=== PATIENT | female | born 1985 | race Caucasian/White ===

== ENCOUNTER 2019-09-13 09:22 | Outpatient (CLI) | payer BC, SELFPAY ==
--- NOTE | 2019-09-13 09:28 | US_ITS ---
WS: [id number] EARLY OBSTETRICAL ULTRASOUND (<14 WEEKS). HISTORY: SUPERVISION,NORMAL COMPARISON: None available. Single intrauterine gestational sac is identified. Cardiac activity at 176 BPM. [place]-rump length erica sures 4.0 cm which corresponds to a gestation of 10w6d. Normal-appearing yolk sac and amnion demonstr ated. No subchorionic hemorrhage. No free fluid. RIGHT ovary measures 3.3 x 2.6 x 2.9 cm and contains a corpus luteum of with a maximum diam eter of 1.3 cm. LEFT ovary measures 3.0 x 2.2 x 3.0 cm. US/US OB <= 14 weeks fetus [id number] IMPRESSION: 1. Single intrauterine gestation of 10 weeks 6 days with an EDC of 04/04/2020. 2. Normal cardiac activity.
== END 2019-09-13 09:23 | disposition home or self-care (01) ==
LOC: RAD 09:27
PROVIDERS: Family Provider Family Medicine; PCP Family Medicine; Visit Provider Family Medicine
DX: Z34.91 Encounter for supervision of normal pregnancy, unspecified, first trimester (principal)
CPT/HCPCS: 76801

== ENCOUNTER 2019-11-22 14:42 | Outpatient (CLI) | payer BC, SELFPAY ==
--- NOTE | 2019-11-22 15:00 | US_ITS ---
WS: [id number] OBSTETRICAL ULTRASOUND COMPLETE HISTORY: ANATOMY COMPARISON: 09/13/2019 Single intrauterine gestation in breech presentation. Cervix is Closed and normal length. Cervical length is 3.7 cm. Normal amount of amniotic fluid surrounds the fetus. Placenta: Anterior, no previa. Placenta grade 1 Heart: 153 BPM. Four chambers are identified. Anatomy: Intracranial structures and spine are normal. kidneys, stomach and urinary bladd er are unremarkable. Abdominal wall, three-vessel cord and cord insertion site are normal. 4 extremities are present. profile: Unremarkable. Gender: Female. measurements: BPD = 4.6 cm = 19w6d HC = 17.5 cm = 20w0d AC = 14.7 cm = 20w0d FL = 3.2 cm = 19w6d EFW: 322 g., AGA by ultrasound: 20w0d HITESH by ultrasound: 04/10/2020 US/US OB >= 14 weeks fetus [id number] IMPRESSION: 1. Single intrauterine gestation of 20w0d with an EDC of 04/10/2020. Appropria te growth since the first trimester. 2. Unremarkable screening survey of anatomy.
== END 2019-11-22 14:43 | disposition home or self-care (01) ==
PROVIDERS: Family Provider Family Medicine; PCP Family Medicine; Visit Provider Family Medicine
DX: Z36.89 Encounter for other specified antenatal screening (principal); Z3A.20 20 weeks gestation of pregnancy
CPT/HCPCS: 76805

== ENCOUNTER 2020-04-08 07:44 | Inpatient (IN) | payer BC, SELFPAY ==
[2020-04-08] VITALS (97 sets, daily range): BP systolic 0–161; BP diastolic 0–98; PULSE 75–116; RESP 15–17; TEMP 36.7–36.9; O2SAT 97–100; BMI 26.6
[2020-04-08 08:34] LABS: Basophils % 0.1 %; Eosinophils # 0.3 10^3/uL (0.0-0.8); Eosinophils % 2.2 %; Hematocrit 35.5 % (37.0-47.0); Hemoglobin 12.1 g/dL (11.5-15.3); Lymphocytes % 13.9 %; Mean Corpuscular HGB Conc 34.1 g/dL (30.0-36.0); Mean Corpuscular Hemoglobin 31.1 pg (28.0-34.0); Mean Corpuscular Volume 91.3 fL (81-99); Mean Platelet Volume 11.4 fL (7.4-10.4); Monocytes # 0.6 10^3/uL (0.2-0.9); Monocytes % 4.5 %; Neutrophils # 11.26 10^3/uL (1.8-7.7); Neutrophils % 78.3 %; Nucleated Red Blood Cells % 0 %; Platelet Count 184 10^3/cmm (130-400); Red Blood Count 3.89 10^6/uL (4.1-5.3); Red Cell Distribution Width 12.9 % (12.1-15.1); White Blood Count 14.4 10^3/uL (4.0-10.0)
[2020-04-08] MEDS: lactated ringers 1,000 ML 999 ML IV ×3 (08:46→21:01)
--- NOTE | 2020-04-08 09:09 | P.ANESUD_ITS ---
Pre-Anesthetic Update Pre-Anesthetic Assessment: Date of Surgery/Procedure: 04/08/20 Preop Beatrice gnosis: IUP Proposed Procedure: epidural Any changes to Pre-Anesthetic Assessment?: No Labs Last 48hrs: Laboratory Results - last 48 hr 04/08/20 08:20 WBC 14.4 H RBC 3.89 L Hgb 12.1 Hct 35.5 L MCV 91.3 MCH 31.1 MCHC 34.1 RDW 12.9 Plt Count 184 MPV 11.4 H Neut % (Auto) 78.3 Lymph % (Auto) 13.9 [place] % (Auto) 4.5 Eos % (Auto) 2.2 Baso % (Auto) 0.1 Neut # (Auto) 11.26 H Lymph # (Auto) 2.0 [place] # (Auto) 0.6 Eos # (Auto) 0.3 Baso # (Auto) 0.0 Nucleated RBC % (a uto) 0 Nucleated RBCs # 0.0 Vitals: Pulse Rate 83 04/08/20 09:00 Blood Pressure 140/95 04/08/20 09:00 Blood Pressure [place] n 114 04/08/20 09:00 Exam: Pre-Anes Outpt Exam: alert, oriented x 3, clear to auscultation bilaterally and regular rate & rhythm Cardiac Studies: No Data to Display
--- NOTE | 2020-04-08 09:29 | P.HP_ITS ---
Providers/Chief Complaint Primary Care Provider: Yuan Draper MD Chief Complaint: Abdominal pain History of Present Illness Anthony Bruner is a 35 year old G2, P1 at 39.5 weeks gestation by LMP consistent with 10-week ultrasound. Her is complicated by history of LEEP, history of chlamydia, history of child with sternal defect, chronic hypertension that is currently diet controlled, anxiety, anemia. The patient states that over the last few days she has been having increasing contractions. She noted that these increased in strength around midnight on 04/08/2020. The contractions continued to build and she presented on the morning of 04/08/2020 around 8:00 AM and was noted to be 5 cm dilated. The patient denies any fevers, cough, chest pain, shortness of breath, nausea, vomiting, constipation, diarrhea, leakage of fluid. Medications/Allergies Home Medications Medication Instructions Recorded Confirmed Last Taken Type [id number] fumarate-FA tab PO 04/08/20 Unknown History [] ferrous sulfate [iron] 325 mg PO DAILY 04/08/20 04/08/20 04/07/20 13:00 History Allergies Allergy/AdvReac Type Severity Reaction Status Date / Time No Known Allergies Allergy Verified 04/08/20 09:31 PFSH Acute PFSH: Surgical History (Updated 04/08/20 @ 09:33 by Cortez Roberts MD) H/O LEEP Social History (Updated 04/08/20 @ 09:34 by Cortez Roberts MD) Smoking and tobacco status: never smoked Alcohol intake: never Substance/Drug Use: never Current occupational status: employed Vitals/I&O/Wt Last Vital Signs Pulse 86 04/08/20 09:15 BP 143/93 04/08/20 09:15 Physical Exam Narrative: EXAM NARRATIVE: General: Alert and oriented x3 Eyes: Pupils equal round and reactive to light and accommodation Mouth: Mucous membranes moist, pharynx non-erythematous Cardiac: Regular rate and rhythm without murmurs Lungs: Clear to auscultation bilaterally without wheezes, crackles or rhonchi Abdomen: Soft, non-tender, fundus consistent with gestational age Extremities: Trace edema in the bilateral lower extremities Data : 04/08/20 08:20 A&P Assessment and plan (1) Intrauterine : Status: Acute Additional A&P Information The patient is currently chinyere every 3 to 6 minutes. heart tones are in the mid 130s with moderate variability and good accelerations consistent with a category 1 tracing. The patient is currently 6 cm dilated. She has began to have some vaginal bleeding. It is mild to moderate in nature. The patient would like to have an epidural. We will plan to get the epidural and continue to monitor her bleeding. We will likely add IV Pitocin for augmentation of labor and consider AROM if the bleeding does not slow down. This could be secondary to her LEEP procedure with scar tissue that is bleeding. The patient's placenta was not noted to be low-lying at her 20-week ultrasound. Currently there are no signs of distress to the infant. Besides this, the GBS is negative and the patient is doing well. Proceed with routine intrapartum management. Attestations Medical Necessity Statement*: The patient will be here for greater than 2 midnights due to routine intrapartum and management of labor and delivery. Coding Level of Care Code Acute Real Estate Representative for Roddy Cox Diagnoses Intrauterine Z34.90
--- NOTE | 2020-04-08 10:14 | ANES.PROC ---
Anesthesia Procedures Procedure/Date: 04/08/20 epidural Procedure Narrative: epidural complete, bolus given, epidural pump initiated with PROPERTY STAFF ACCOUNTANT education given, vitals taken during procedure using OBIX system and satisfactory throughout, patient admits to decrease pain, report of procedure to OB RN Epidural: Time Out Performed: Yes Consents Signed: Procedure Consent Consent: requested by attending/covering physician, from patient, risks and benefits reviewed and patient agrees to proceed Lumbar Level: L3-L4 Epidural position: sitting Epidural procedure: sterile prep of area, 1% lidocaine to numb the area (3 mL), 18 g needle, negative for paresthesia passed, neg for paresthesia, test dose given, 1.5% xylocaine 1:200k epi (5 mL), 0.2% Ropivacaine bolus ml (5 mL), placed PCEA, no systemic response, sterile dressing applied, L.U.D. no apparent complications and 0.2% Ropiavacaine @ mls/hr (13 mL/hr)
[2020-04-08] MEDS: dextrose 5%-lactated ringers 1,000 ML 125 ML IV ×2 (10:42→17:58)
[2020-04-08] MEDS: oxytocin 30 UNIT/500 ML BAG 4 UNIT IV (11:04)
--- NOTE | 2020-04-08 14:58 | PM.DELIVERY ---
Delivery Note: Date of delivery: April 08, 2020 Pre-delivery diagnoses: 1. Intrauterine at 39.5 weeks gestation 2. Anxiety 3. History of LEEP Post-delivery diagnoses: 1. Intrauterine status post spontaneous vaginal delivery at 39.5 weeks gestation 2. Anxiety 3. History of LEEP 4. Delivery of healthy infant female weighing 7 pounds 9 ounces with Apgars of 9 and 9 Procedure: Spontaneous vaginal delivery Op report anesthesia: Epidural Estimated blood loss (mL): 100 Pre-Delivery Course: The patient presented to labor and delivery triage secondary to contractions that worsened around midnight on 04/08/2020. The patient presented to labor and delivery and was 5 cm dilated at 8 AM on 04/08/2020. The patient continued to make change on her own and received a laboring epidural. IV Pitocin was given to augment labor. The patient made steady change and was complete by 1355 on 04/08/2020. Delivery: The patient began pushing at 1403 on 04/08/2020. The patient pushed well and the delivered in the OA position at 1432 on 04/08/2020. The right shoulder was the anterior shoulder and it delivered with ease. Rest of the infant delivered with steady pressure. Terminal meconium was noted. The mouth and nose were bulb suctioned by myself. The was crying immediately after delivery. The infant was placed on the mother's chest where the nurses were waiting to care for her. The cord was clamped by myself after approximately 1 minute and cut by the infant's grandmother. Cord blood was obtained. The cord was then drained of blood and traction was placed on the umbilical cord. The placenta delivered without complication at 1436 on 04/08/2020. The placenta was noted to be intact with a central umbilical cord insertion site. IV Pitocin was bolused. The uterus was noted to be firm, midline and low. The patient had very little bleeding. The cervix was inspected and there were no lacerations noted. The vaginal wall was inspected and 2 small abrasions in the periurethral region were noted. No suturing was needed. Currently both the mother and infant are doing very well. A&P Assessment and plan (1) Intrauterine : Status: Acute Coding Level of Care Code Acute Foreign Car Mechanic for [facility] Diagnoses Intrauterine Z34.90
[2020-04-08] MEDS: oxytocin 30 UNIT/500 ML BAG 600 UNIT IV (17:08)
[2020-04-08] MEDS: miSOPROStol 200 mcg Tablet 800 MCG PR (17:12)
--- NOTE | 2020-04-08 17:28 | PC.NURSE ---
BLEEDING FUNDUS WAS FIRM AT 1630 AND AT 1705 FUNDUS WAS FIRM AND BLADDER FELT DISTENDED AND OFF TO HER RIGHT SIDE. PT FELT DIZZY AND UNABLE TO VOID SO STRAIGHT CATH DONE AT 1710 AND FUNDUS MASSAGED WELL AND LARGE AMOUNT OF CLOTS AND FLOW IT WAS WEIGHED AND 1140MLS TOTAL. Cedric GREER CALLED AND WELL ANOTHER BAG OF PITOCIN HUNG WHILE ROSALBA STONE TALKED WITH DR. GREER ORDERED RECEIVED TO PLACE 800MCG CYTOTEC. 1715 CYTOTEC 800MCG GIVEN PER RECTUM. PT STATES FEELING BETTER. FUNDUS FIRM AT UMBILICUS.
[2020-04-08] MEDS: docusate sodium 100 mg Capsule PO (17:58)
[2020-04-08 21:18] LABS: Basophils % 0.1 %; Eosinophils % 0.1 %; Hematocrit 26.6 % (37.0-47.0); Hemoglobin 8.9 g/dL (11.5-15.3); Lymphocytes # 1.2 10^3/uL (0.8-4.8); Lymphocytes % 7.3 %; Mean Corpuscular HGB Conc 33.5 g/dL (30.0-36.0); Mean Corpuscular Volume 92.7 fL (81-99); Mean Platelet Volume 11.3 fL (7.4-10.4); Monocytes # 0.7 10^3/uL (0.2-0.9); Monocytes % 4.5 %; Neutrophils % 87.3 %; Nucleated Red Blood Cells % 0 %; Platelet Count 170 10^3/cmm (130-400); Red Blood Count 2.87 10^6/uL (4.1-5.3); Red Cell Distribution Width 12.8 % (12.1-15.1); White Blood Count 16.6 10^3/uL (4.0-10.0)
[2020-04-08 21:24] LABS: INR 1.04 (0.8-1.2); Partial Thromboplastin Time 26.7 SECONDS (23.9-36.7)
[2020-04-08 21:26] LABS: Fibrinogen 378 mg/dL (174-498)
[2020-04-08] MEDS: benzocaine-menthol 78 gm Canister 1 SPRAY TOPICAL (21:49)
[2020-04-08 21:53] LABS: Alanine Aminotransferase 7 U/L (0-33); Albumin Level 2.9 g/dL (3.5-5.2); Alkaline Phosphatase 91 IU/L (35-105); Anion Gap 11.8 (5-19); Aspartate Amino Transferase 15 U/L (0-32); Blood Urea Nitrogen 8 mg/dL (6-20); Calcium 7.7 mg/dL (8.5-10.5); Carbon Dioxide 21 mmol/L (22-29); Chloride 106 mmol/L (98-107); Globulin 1.8 g/dL (1.3-4.6); Glomerular Filtration Rate 95.8 mL/min (90-130); Glucose 110 mg/dL (65-115); Osmolality Calculated 277 mOsm/kg (285-295); Potassium 3.8 mmol/L (3.5-5.1); Sodium 135 mmol/L (136-145); Total Bilirubin 0.2 mg/dL (0.15-1.2); Total Protein 4.7 g/dL (6.6-8.7)
[2020-04-09 03:45] VITALS: BP 120/77; PULSE 70; RESP 16; TEMP 36.7; O2SAT 97
[2020-04-09 06:35] LABS: Hematocrit 23.1 % (37.0-47.0); Hemoglobin 7.8 g/dL (11.5-15.3); Mean Corpuscular HGB Conc 33.8 g/dL (30.0-36.0); Mean Corpuscular Hemoglobin 31.1 pg (28.0-34.0); Platelet Count 140 10^3/cmm (130-400); Red Blood Count 2.51 10^6/uL (4.1-5.3); White Blood Count 13.9 10^3/uL (4.0-10.0)
--- NOTE | 2020-04-09 08:13 | ANE.PACU2 ---
Inpatient post-anesthesia follow up: Airway intact: Yes Vital signs: Temperature 98.1 F Pulse Rate 70 Respiratory Rate 16 Blood Pressure 120/77 Pulse Oximetry 97 Oxygen Delivery Me thod Room Air Oxygen Flow Rate Fraction of Inspir ed Oxygen Hydration adequate: Yes Nausea and vomiting: No Pain level: 3 Mental status: Baseline Additional Comments: no weakness/numbness of legs, no headache, no signs of infection at epidural site
[2020-04-09] MEDS: docusate sodium 100 mg Capsule PO (08:15)
[2020-04-09] MEDS: prenatal vitamin Capsule 1 CAP PO (08:15)
[2020-04-09 08:47] VITALS: BP 125/78; PULSE 82; RESP 18; TEMP 36.8
[2020-04-09 10:00] VITALS: BP 121/72; PULSE 78; RESP 16; TEMP 36.8; O2SAT 98
--- NOTE | 2020-04-09 14:19 | PM.DCS ---
Discharge Providers Date of Admission: 04/08/20 07:44 Date of Discharge: April 09, 2020 Attending Provider at Admission: Cortez Rboerts MD Attending Provider at Discharge: Cortez Roberts MD Primary Care Provider: Yuan Draper MD Diagnoses at Discharge Discharge Diagnosis (1) Intrauterine : Status: Acute Reason for Visit Reason for Visit: Abdominal pain Hospital Course Hospital Course: The patient presented to labor and delivery triage secondary to contractions that worsened around midnight on 04/08/2020. The patient presented to labor and delivery and was 5 cm dilated at 8 AM on 04/08/2020. The patient continued to make change on her own and received a laboring epidural. IV Pitocin was given to augment labor. The patient made steady change and was complete by 1355 on 04/08/2020. The patient began pushing at 1403 on 04/08/2020. The patient pushed well and the infant delivered in the OA position at 1432 on 04/08/2020. The right shoulder was the anterior shoulder and it delivered with ease. Rest of the infant delivered with steady pressure. Terminal meconium was noted. The mouth and nose were bulb suctioned by myself. The was crying immediately after delivery. The was placed on the mother's chest where the nurses were waiting to care for her. The cord was clamped by myself after approximately 1 minute and cut by the 's grandmother. Cord blood was obtained. The cord was then drained of blood and traction was placed on the umbilical cord. The placenta delivered without complication at 1436 on 04/08/2020. The placenta was noted to be intact with a central umbilical cord insertion site. IV Pitocin was bolused. The uterus was noted to be firm, midline and low. The patient had very little bleeding. The cervix was inspected and there were no lacerations noted. The vaginal wall was inspected and 2 small abrasions in the periurethral region were noted. No suturing was needed. the patient was doing well initially, however later in the evening was found to have a very large blood clot after her uterus was noted to be above her umbilicus and to the right by the nurse. She was found to have over thousand mL of urine in her bladder on straight cath as the patient was unable to void. The patient's bleeding slowed down well after this, however she did have some dizziness. This improved with a liter bolus of warmed fluids. The patient's hemoglobin was rechecked and had dropped from 12 on admission to 8.9 that evening prior to the bolus. By the morning of 04/09/2020, it had settled at 7.8. The patient currently feels well and no longer has any dizziness since the fluid bolus. She is ambulating, voiding, passing gas and tolerating food by mouth. The patient's bleeding is very little at this time. Her pain is well controlled. I had a lengthy discussion with the patient regarding the causes of the above as well as precautions and when to return for evaluation. I spoke with the patient regarding staying 1 more night versus going home this afternoon, and she would prefer to go home this evening as long as she is still doing well throughout the afternoon. We will see how she does over the next couple of hours and have her walk the halls to be sure that she is no longer having dizziness and can complete her ADLs at home sufficiently. If she does well with this, will plan for discharge home. The patient will follow-up with me on Friday. All questions were answered. Routine obstetrical discharge instructions were given. Physical Exam Narrative: EXAM NARRATIVE: General: Alert and oriented x3 Cardiac: Regular rate and rhythm without murmurs Lungs: Clear to auscultation bilaterally without wheezes, crackles or rhonchi Abdomen: Soft, mild tenderness over the uterus. Uterus is firm, midline and 4 cm below the umbilicus. Extremities: Trace edema in the bilateral lower extremities Urinary Catheter Management^: [place]: Cath Placed During This Visit: yes, but has since been removed by the nurse Reason for Continuing Indwelling Catheter: Other Urinary Catheter Date of Insertion: 04/08/20 Urinary Catheter Time of Insertion: 10:35 Date Urinary Catheter Removed: 04/08/20 Time Urinary Catheter Discontinued: 14:00 Discharge Data Data Completed and Pending: Labs from last 24 hours 04/09/20 04/08/20 04/08/20 05:55 21:00 21:00 WBC 13.9 H RBC 2.51 L Hgb 7.8 L Hct 23.1 L MCV 92.0 MCH 31.1 MCHC 33.8 RDW 13.0 Plt Count 140 MPV 11.0 H Neut % (Auto) Lymph % (Auto) [place] % (Auto) Eos % (Auto) Baso % (Auto) Neut # (Auto) Lymph # (Auto) [place] # (Auto) Eos # (Auto) Baso # (Auto) Nucleated RBC % (a uto) Nucleated RBCs # PT 13.90 INR 1.04 APTT 26.7 Fibrinogen 378 Fibrin Degrad Prod ucts Pos, 10-40 H D-Dimer 7.90 H Sodium 135 L Potassium 3.8 Chloride 106 Carbon Dioxide 21 L Anion Gap 11.8 BUN 8 Creatinine 0.7 GFR Calculation 95.8 Glucose 110 Calculated Osmolal ity 277 L Calcium 7.7 L Total Bilirubin 0.2 AST 15 ALT 7 Alkaline Phosphata se 91 Total Protein 4.7 L Albumin 2.9 L Globulin 1.8 04/08/20 21:00 WBC 16.6 H RBC 2.87 L Hgb 8.9 L Hct 26.6 L MCV 92.7 MCH 31.0 MCHC 33.5 RDW 12.8 Plt Count 170 MPV 11.3 H Neut % (Auto) 87.3 Lymph % (Auto) 7.3 [place] % (Auto) 4.5 Eos % (Auto) 0.1 Baso % (Auto) 0.1 Neut # (Auto) 14.50 H Lymph # (Auto) 1.2 [place] # (Auto) 0.7 Eos # (Auto) 0.0 Baso # (Auto) 0.0 Nucleated RBC % (a uto) 0 Nucleated RBCs # 0.0 PT INR APTT Fibrinogen Fibrin Degrad Prod ucts D-Dimer Sodium Potassium Chloride Carbon Dioxide Anion Gap BUN Creatinine GFR Calculation Glucose Calculated Osmolal ity Calcium Total Bilirubin AST ALT Alkaline Phosphata se Total Protein Albumin Globulin Vitals: Last Vital Signs Temp 98.3 F 04/09/20 10:00 Pulse 78 04/09/20 10:00 Resp 16 04/09/20 10:00 BP 121/72 04/09/20 10:00 Pulse Ox 98 04/09/20 10:00 Discharge Plan Discharge Patient Disposition: Home Condition: Stable Prescriptions: New ibuprofen 800 mg Tablet 800 mg PO TID Qty: 60 RF: 0 Continued 28-800 mg-mcg Tablet PO RF: 0 Changed iron 325 mg (65 mg iron) Tablet 325 mg PO BIDWMEAL Qty: 60 RF: 0 Discharge Orders: Discharge Order (Routine); Ordered 04/09/20 Ordered By: Cortez Roberts Discharge Diet: Regular Discharge Activity: Increase activity as tolerated and Limit activity as instructed Activity Restrictions/Additional Instructions: Nothing per vagina for 6 weeks. If you have any concerns for heavy bleeding or other complications, please return for further evaluation. Discharge Attestations Time Spent in Discharge Care*: greater than 30 min Quality Metrics Clinical Quality Measures During this hospital stay, did patient experience: None Coding Level of Care Code Acute Butadiene Convertor Operator for [facility] Diagnoses Intrauterine Z34.90
[2020-04-09 16:45] VITALS: BP 131/83; PULSE 89; RESP 18; TEMP 36.7; O2SAT 98
[2020-04-09 17:01] VITALS: BP 131/83; PULSE 89; RESP 18; TEMP 36.7; O2SAT 98
== END 2020-04-09 16:55 | disposition home or self-care (01) | DRG 806 ==
LOC: OPOB 07:50 → OBGYN 07:51 → OPOB 10:51 → OBGYN 10:51
PROVIDERS: Admitting Provider Family Medicine; PCP Family Medicine; Visit Provider Family Medicine
DX: O77.0 Labor and delivery complicated by meconium in amniotic fluid (principal); O10.92 Unspecified pre-existing hypertension complicating childbirth; Z37.0 Single live birth; Z3A.39 39 weeks gestation of pregnancy; O99.344 Other mental disorders complicating childbirth; F41.9 Anxiety disorder, unspecified
CPT/HCPCS: 12345; 36415; 51702; 59025; 59409; 80053; 85025; 85027; 85362; 85378; 85384; 85610; 85730; 99211; J2795

== ENCOUNTER → 2021-12-13 14:42 | Outpatient (BNVA) | payer BC, SELFPAY | PROVIDERS: PCP Family Medicine; Visit Provider Family Medicine | DX: Z01.419 Encounter for gynecological examination (general) (routine) without abnormal findings (principal) | CPT/HCPCS: 87624 ==

== ENCOUNTER 2023-01-27 17:08 | Emergency (ER) | payer BC, SELFPAY ==
[2023-01-27 17:35] VITALS: BP 159/100; PULSE 87; RESP 16; TEMP 36.8; O2SAT 98; BMI 24.9
--- NOTE | 2023-01-27 17:46 | ED_ITS ---
HPI - General: Chief complaint: OB/Uterine Contractions Stated complaint: vaginal bleeding, Time Seen by Provider: 01/27/23 17:19 Source: patient Mode of arrival: ambulatory Limitations: no limitations History of Present Illness: 37-year-old female who states she believes she is roughly 4 weeks . States she has had some vaginal bleeding and passed 1 blood clot today. She had some slight abdominal cramping she denies any vomiting or diarrhea she denies any fever she denies any heavy bleeding. Associated symptoms: Deny abdominal pain, headache(s), nausea or vomiting Review of Systems Const: Denies: fever(s) or chills ENMT: Denies: throat pain or dental pain Card: Denies: chest pain Resp: Denies: dyspnea GI: Denies: abdominal pain, nausea, vomiting or diarrhea : Reports: vaginal bleeding Musc: Denies: neck pain or back pain Skin/Breast: Denies: rash Neuro: Denies: headache(s) PFSH ED PFSH: Surgical History H/O LEEP Social History Smoking and tobacco status: never smoked Alcohol intake: never Substance/Drug Use: never Current occupational status: employed Physical Exam Const: COMMON NORMALS: no acute distress, patient oriented x3 and healthy appearing HENMT: COMMON NORMALS: normocephalic and atraumatic HEAD & SCALP: normocephalic and atraumatic Eye: COMMON NORMALS: conjunctivae normal CONJUNCTIVA: Yes conjunctivae normal Neck/C-Spine: COMMON NORMALS: supple Chest: COMMONS NORMALS: normal inspection of the chest Resp: COMMON NORMALS: normal respiratory effort Cardio: COMMON NORMALS: regular rate, regular rhythm and No murmurs present (Cardio) RATE: regular rate RHYTHM: regular rhythm GI: COMMON NORMALS: Normal to inspection, nondistended, normoactive bowel sounds present, Soft to palpation, non-tender and no masses PALPATION: Yes Soft to palpation Extremity: COMMON NORMALS: normal to inspection and full ROM Neuro: COMMON NORMALS: patient oriented x3, moves all extremities and no focal motor deficits Psych: COMMON NORMALS: mental status grossly normal, Normal thought process present and cooperative THOUGHT PROCESS: Normal thought process present Skin: COMMON NORMALS: no rashes or lesions noted and no wounds GENERAL SKIN EXAM: no rashes or lesions noted Course Vital Signs: Vital signs: Vital Signs Temperature 98.3 F 01/27/23 17:35 Pulse Rate 87 01/27/23 17:35 Respiratory Rate 16 01/27/23 17:35 Blood Pressure 159/100 01/27/23 17:35 Pulse Oximetry 98 01/27/23 17:35 Oxygen Delivery Me thod Room Air 01/27/23 17:35 MDM - OB/Uterine Contractions Medical Decision Making Patient presents here with vaginal bleeding her quantitative here was 2.28. She is likely not does not warrant an ultrasound at this time as it would not visualize anything with such a low quantitative her bleeding is minimal her blood pressure and hemoglobin here are normal I did speak to her primary care doctor Dr. Roberts she is to follow-up later this week or next week and have a repeat quantitative she is return if worsening Medical Records I reviewed the patient's medical records. Lab Data I reviewed the patient's lab results. 01/27/23 17:49 Laboratory Results WBC 11.7 10^3/uL (4.0-10.0) H 01/27/23 17:49 RBC 4.44 10^6/uL (4.1-5.3) 01/27/23 17:49 Hgb 11.5 g/dL (11.5-15.3) 01/27/23 17:49 Hct 36.0 % (37.0-47.0) L 01/27/23 17:49 MCV 81.1 fl (81-99) 01/27/23 17:49 MCH 25.9 pg (28.0-34.0) L 01/27/23 17:49 MCHC 31.9 g/dL (30.0-36.0) 01/27/23 17:49 RDW 13.0 % (12.1-15.1) 01/27/23 17:49 Plt Count 330 10^3/cmm (130-400) 01/27/23 17:49 MPV 9.8 fL (7.4-10.4) 01/27/23 17:49 Neut % (Auto) 71.4 % 01/27/23 17:49 Lymph % (Auto) 18.4 % 01/27/23 17:49 [place] % (Auto) 5.3 % 01/27/23 17:49 Eos % (Auto) 4.4 % 01/27/23 17:49 Baso % (Auto) 0.2 % 01/27/23 17:49 Neut # (Auto) 8.33 10^3/uL (1.8-7.7) H 01/27/23 17:49 Lymph # (Auto) 2.1 10^3/uL (0.8-4.8) 01/27/23 17:49 [place] # (Auto) 0.6 10^3/uL (0.2-0.9) 01/27/23 17:49 Eos # (Auto) 0.5 10^3/uL (0.0-0.8) 01/27/23 17:49 Baso # (Auto) 0.0 10^3/uL (0.0-0.1) 01/27/23 17:49 Nucleated RBC % (auto) 0 % 01/27/23 17:49 Nucleated RBCs # 0.0 /100WBC 01/27/23 17:49 Ser , Semi-Qnt 2.28 mIU/mL 01/27/23 17:49 Blood Type O Positive 01/27/23 17:49 Rho(D) Type Positive 01/27/23 17:49 Antibody Screen Negative 01/27/23 17:49 Discharge Plan Discharge Patient Disposition: Home Clinical Impression: Vaginal bleeding Condition: Stable Prescriptions: No Action 28-800 mg-mcg Tablet PO ibuprofen 800 mg Tablet 800 mg PO TID Qty: 60 0RF iron 325 mg (65 mg iron) Tablet 325 mg PO BIDWMEAL Qty: 60 0RF Discharge Orders: Discharge ED (Routine); Ordered 01/27/23 Ordered By: Zenobia Machado Referrals: Cortez Roberts MD [Primary Care Provider] - 1-3 days Discharge Diet: Advance as tolerated Discharge Activity: Resume usual activity Patient Instructions: Abnormal (Dysfunctional) Uterine Bleeding (ED) Coding Level of Care Code ED Support Services Coordinator for Roddy Cox
[2023-01-27 17:59] LABS: Basophils % 0.2 %; Eosinophils # 0.5 10^3/uL (0.0-0.8); Eosinophils % 4.4 %; Hemoglobin 11.5 g/dL (11.5-15.3); Lymphocytes # 2.1 10^3/uL (0.8-4.8); Lymphocytes % 18.4 %; Mean Corpuscular HGB Conc 31.9 g/dL (30.0-36.0); Mean Corpuscular Hemoglobin 25.9 pg (28.0-34.0); Mean Corpuscular Volume 81.1 fl (81-99); Mean Platelet Volume 9.8 fL (7.4-10.4); Monocytes # 0.6 10^3/uL (0.2-0.9); Monocytes % 5.3 %; Neutrophils # 8.33 10^3/uL (1.8-7.7); Neutrophils % 71.4 %; Nucleated Red Blood Cells % 0 %; Platelet Count 330 10^3/cmm (130-400); Red Blood Count 4.44 10^6/uL (4.1-5.3); White Blood Count 11.7 10^3/uL (4.0-10.0)
[2023-01-27 18:25] LABS: HCG Quantitative 2.28 mIU/mL
== END 2023-01-27 18:40 | disposition home or self-care (01) ==
PROVIDERS: Emergency Provider Emergency Medicine; PCP Family Medicine
DX: N93.9 Abnormal uterine and vaginal bleeding, unspecified (principal)
CPT/HCPCS: 84702; 85025; 86850; 86900; 99283

== ENCOUNTER → 2023-09-10 09:57 | Outpatient (BNVA) | payer BC, SELFPAY | PROVIDERS: PCP Family Medicine; Visit Provider Family Medicine | DX: Z34.90 Encounter for supervision of normal pregnancy, unspecified, unspecified trimester (principal); Z3A.00 Weeks of gestation of pregnancy not specified; R30.0 Dysuria; I10 Essential (primary) hypertension | CPT/HCPCS: 80307; 81000; 81025; 84144; 84443; 84702; 85025; 86592; 86762; 86803; 86850; 86900; 87086; 87340; 87491; 87591; 87624; 87806 ==

== ENCOUNTER 2023-10-01 12:57 | Outpatient (CLI) | payer BC, SELFPAY ==
--- NOTE | 2023-10-01 13:00 | US_ITS ---
WS: [id number] EARLY OBSTETRICAL ULTRASOUND (<14 WEEKS). HISTORY: Dating US - next 1-2 weeks if possible COMPARISON: None available. Single intrauterine gestational sac and crown-rump length. [place]-rump length measurement of 1.2 cm co rresponds to a gestation of 7 weeks and 3 days. No cardiac activity is identified during this examination. By LMP gestation should be approximately 1 0 weeks and 5 days. Cervix is closed. Small corpus luteal cyst LEFT ovary 1.5 x 1.3 x 1.3 cm. IMPRESSION: 1. Intrauterine embryonic demise. No cardiac activity is identified. 2. age estimated at 7 weeks and 3 days by ultrasound. By LMP gestation age is expected to be 1 0 weeks and 5 days. Notified Cortez Roberts MD at 10/01/2023 1:46 PM.
== END 2023-10-01 12:58 | disposition home or self-care (01) ==
LOC: RAD 12:58
PROVIDERS: PCP Family Medicine; Visit Provider Family Medicine
DX: Z34.91 Encounter for supervision of normal pregnancy, unspecified, first trimester (principal)
CPT/HCPCS: 76801; 76817

== ENCOUNTER 2024-03-18 04:12 | Inpatient (IN) | payer BC, SELFPAY ==
[2024-03-18] VITALS (46 sets, daily range): BP systolic 97–131; BP diastolic 58–96; PULSE 87–109; RESP 12–30; TEMP 36.3–37.2; O2SAT 97–100; BMI 26.2; BMI 26.5
[2024-03-18 04:36] LABS: Basophils % 0.1 %; Hematocrit 33.9 % (36-47); Lymphocytes # 1.8 10^3/uL (0.8-4.8); Lymphocytes % 8.1 %; Mean Corpuscular HGB Conc 32.2 g/dL (30-55); Mean Corpuscular Hemoglobin 26.9 pg (27-33); Mean Corpuscular Volume 83.7 fl (85-98); Mean Platelet Volume 10.4 fL (7.4-10.4); Monocytes # 0.5 10^3/uL (0.2-0.9); Monocytes % 2.1 %; Neutrophils # 19.68 10^3/uL (1.8-7.7); Neutrophils % 89.1 %; Nucleated Red Blood Cells % 0 %; Platelet Count 420 10^3/cmm (157-399); Red Blood Count 4.05 10^6/uL (3.85-5.65); Red Cell Distribution Width 13.2 % (12.1-15.1)
--- NOTE | 2024-03-18 04:40 | W.ED.NAVMDI ---
HPI - Nausea/Vomiting/Diarrhea General: Chief complaint: Nausea/Vomiting/Diarrhea Stated complaint: Vomiting Blood Time Seen by Provider: 03/18/24 04:21 History of Present Illness: 38-year-old female with a history of hypertension and chronic abdominal issues and GERD who presents emergency room with nausea and vomiting and concern for hematemesis. She has been vomiting for several hours now. She has some epigastric discomfort. No fevers. No dysuria. No other abdominal pain. No chest pain. No altered mental status. No focal motor deficits. Related Data Home Medications Medication Instructions Recorded Confirmed vit no.133-ferrous tab PO 04/08/20 10/08/23 fumarate 28 mg-folic acid 800 mcg tablet () Previous Rx's Medication Instructions Recorded doxylamine succinate 25 mg tablet See Rx Instructions .Route 09/10/23 .COMPLEX PRN allergy symptoms #30 tabs pyridoxine (vitamin B6) 100 mg 100 mg PO BID PRN Nausea #60 tabs 09/10/23 tablet ferrous sulfate 325 mg (65 mg 325 mg PO DAILY #30 tabs 09/15/23 iron) tablet sertraline 25 mg tablet 25 mg PO DAILY #30 tabs 01/27/24 Allergies Allergy/AdvReac Type Severity Reaction Status Date / Time No Known Allergies Allergy Verified 01/27/23 17:35 Review of Systems Narrative: Constitutional symptoms: Negative except as documented in HPI. Skin symptoms: Negative except as documented in HPI. Eye symptoms: Negative except as documented in HPI. ENMT symptoms: Negative except as documented in HPI. Respiratory symptoms: Negative except as documented in HPI. Cardiovascular symptoms: Negative except as documented in HPI. Gastrointestinal symptoms: Negative except as documented in HPI. Genitourinary symptoms: Negative except as documented in HPI. Musculoskeletal symptoms: Negative except as documented in HPI. Neurologic symptoms: Negative except as documented in HPI. Psychiatric symptoms: Negative except as documented in HPI. Endocrine symptoms: Negative except as documented in HPI. PFSH ED PFSH: Medical History Hypertension Surgical History History of vaginal surgery Labioplasty - 2018 - Dr Hill - [place] [facility] Family History Father Diabetes Social History Smoking and tobacco/nicotine status: never used tobacco/nicotine Alcohol intake: never Substance/Drug Use: never Current occupational status: employed Current occupation: [employer] Physical Exam Narrative: EXAM NARRATIVE: General: Alert, no acute distress. Skin: Warm, dry. Head: Normocephalic, atraumatic. Neck: Supple, trachea midline. Eye: Extraocular movements are intact. Ears, nose, mouth and throat: mucosa moist. Cardiovascular: Regular, Normal peripheral perfusion. Respiratory: Lungs are clear to auscultation, respirations are non-labored, breath sounds are equal, Symmetrical chest wall expansion. Gastrointestinal: Soft, epigastric tenderness to palpation, Non distended Musculoskeletal: Normal ROM, no deformity. Neurological: Alert and oriented, No focal neurological deficit observed. Psychiatric: Cooperative, appropriate mood & affect. Course Vital Signs: Vital signs: Vital Signs Temperature 98.7 F 03/18/24 04:31 Pulse Rate 97 03/18/24 04:31 Respiratory Rate 16 03/18/24 04:31 Blood Pressure 98/66 03/18/24 05:01 Pulse Oximetry 100 03/18/24 04:31 Oxygen Delivery Me thod Room Air 03/18/24 04:27 MDM - Nausea/Vomiting/Diarrhea Medical Decision Making Medical decision making: Differential diagnosis including but not limited to and based on the above HPI, review of systems and physical exam: In a patient with upper GI bleeding would have concern for upper gi bleed from varices or ulcer. Concern for anemia. Concern for liver disease. concern for anticoagulation. Orders placed to evaluate differential diagnosis based on the above differential, HPI and physical exam Lab Review: Laboratory results were reviewed and interpreted by myself the emergency room physician. Patient has significant leukocytosis with a white count of 22,000. Hemoglobin is 10.9 which is down from 13 a couple months ago. BUN and creatinine are 36 and 0.9. This elevation in BUN is quite indicative that she has had an upper GI bleed. I reviewed the patient's medical record. Reexamination: Patient blood pressure has become a little bit lower. Otherwise she remained stable. She is no longer having any vomiting at this point. She appears comfortable. No increased work of breathing. No altered mental status. Consultation: I spoke with general surgery on-call and they will consult. Plan is likely for upper endoscopy. Agree with Protonix and fluids for now. Consultation: I spoke with the hospitalist on-call Dr. Samayoa. He agrees to admission to the ICU on an observation status for now. Assessment and plan: Upper GI bleed Acute blood loss -80 mg IV Protonix. 2 L normal saline bolus. Type and screen has been sent. - I discussed the patient with the hospitalist on-call who is admitting the patient. - Discussed findings and plan with patient. Answered any questions. - All laboratory values were reviewed and interpreted personally by myself, the ER physician - All imaging was reviewed and interpreted personally by myself, the ER physician. - Evaluation and treatment of this problem were appropriate in the emergency setting Lab Data 03/18/24 04:25 03/18/24 04:25 Laboratory Results WBC 22.10 10^3/uL (3.29-11.43) H 03/18/24 04:25 RBC 4.05 10^6/uL (3.85-5.65) 03/18/24 04:25 Hgb 10.90 g/dL (11.27-16.99) L 03/18/24 04:25 Hct 33.9 % (36-47) L 03/18/24 04:25 MCV 83.7 fl (85-98) L 03/18/24 04:25 MCH 26.9 pg (27-33) L 03/18/24 04:25 MCHC 32.2 g/dL (30-55) 03/18/24 04:25 RDW 13.2 % (12.1-15.1) 03/18/24 04:25 Plt Count 420 10^3/cmm (157-399) H 03/18/24 04:25 MPV 10.4 fL (7.4-10.4) 03/18/24 04:25 Neut % (Auto) 89.1 % 03/18/24 04:25 Lymph % (Auto) 8.1 % 03/18/24 04:25 [place] % (Auto) 2.1 % 03/18/24 04:25 Eos % (Auto) 0.0 % 03/18/24 04:25 Baso % (Auto) 0.1 % 03/18/24 04:25 Neut # (Auto) 19.68 10^3/uL (1.8-7.7) H 03/18/24 04:25 Lymph # (Auto) 1.8 10^3/uL (0.8-4.8) 03/18/24 04:25 [place] # (Auto) 0.5 10^3/uL (0.2-0.9) 03/18/24 04:25 Eos # (Auto) 0.0 10^3/uL (0.0-0.8) 03/18/24 04:25 Baso # (Auto) 0.0 10^3/uL (0.0-0.1) 03/18/24 04:25 Nucleated RBC % (auto) 0 % 03/18/24 04:25 Nucleated RBCs # 0.0 /100WBC 03/18/24 04:25 PT 14.30 SECONDS (12.1-14.9) 03/18/24 04:25 INR 1.07 (0.8-1.2) 03/18/24 04:25 APTT 25.5 SECONDS (23.9-36.7) 03/18/24 04:25 Sodium 136 mmol/L (136-145) 03/18/24 04:25 Potassium 3.7 mmol/L (3.5-5.1) 03/18/24 04:25 Chloride 99 mmol/L (98-107) 03/18/24 04:25 Carbon Dioxide 20 mmol/L (22-29) L 03/18/24 04:25 Anion Gap 20.7 (5-19) H 03/18/24 04:25 BUN 36 mg/dL (6-20) H 03/18/24 04:25 Creatinine 0.9 mg/dL (0.5-0.9) 03/18/24 04:25 GFR Calculation 70.5 mL/min (90-130) L 03/18/24 04:25 Glucose 184 mg/dL (65-115) H 03/18/24 04:25 Calculated Osmolality 295 mOsm/kg (285-295) 03/18/24 04:25 Lactic Acid 4.1 mmol/L (0.5-2.2) H* 03/18/24 04:25 Calcium 8.3 mg/dL (8.5-10.5) L 03/18/24 04:25 Total Bilirubin 0.5 mg/dL (0.15-1.2) 03/18/24 04:25 AST 14 U/L (0-32) 03/18/24 04:25 ALT 11 U/L (0-33) 03/18/24 04:25 Alkaline Phosphatase 53 U/L (35-105) 03/18/24 04:25 C-Reactive Protein 3.0 mg/L (0.0-4.9) 03/18/24 04:25 Total Protein 6.5 g/dL (6.6-8.7) L 03/18/24 04:25 Albumin 4.1 g/dL (3.5-5.2) 03/18/24 04:25 Globulin 2.4 g/dL (1.3-4.6) 03/18/24 04:25 Lipase 20 U/L (13-60) 03/18/24 04:25 HCG, Qual Negative (Negative) 03/18/24 04:25 Urine Color Yellow (Yellow) 03/18/24 04:30 Urine Appearance Clear (CLEAR) 03/18/24 04:30 Urine pH 6.5 (5-7) 03/18/24 04:30 Ur Specific [place] 1.025 (1.005-1.030) 03/18/24 04:30 Urine Protein Negative (Negative) 03/18/24 04:30 Urine Glucose (UA) Negative (Normal) 03/18/24 04:30 Urine Ketones 2+ (Negative) H 03/18/24 04:30 Urine Blood Trace (Negative) A 03/18/24 04:30 Urine Nitrate Negative (Negative) 03/18/24 04:30 Urine Bilirubin Negative (Negative) 03/18/24 04:30 Urine Urobilinogen 1.0 mg/dL (Negative) 03/18/24 04:30 Ur Leukocyte Esterase 1+ (Negative) A 03/18/24 04:30 Urine RBC 0-2 /hpf (0-2) 03/18/24 04:30 Urine WBC 6-10 /hpf (0-5) 03/18/24 04:30 Ur Squamous Epith Cells 0-5 /hpf (0-5) 03/18/24 04:30 Amorphous Sediment Not Reportable 03/18/24 04:30 Urine Bacteria Trace /hpf (NONE) 03/18/24 04:30 Hyaline Casts 0.40 /lpf 03/18/24 04:30 No radiology studies performed this visit Discharge Plan Discharge Patient Disposition: Admitted As Inpatient Clinical Impression: Acute upper gastrointestinal bleeding, Peptic ulcer disease Condition: Stable Coding Level of Care Code ED Medical Transcription Radiology for Roddy Cox
--- NOTE | 2024-03-18 04:48 | CTR_ITS ---
PROCEDURE INFORMATION: Exam: CT Abdomen And Pelvis With Contrast Exam date and time: 03/18/2024 5:09 AM Age: 38 years old Clinical indication: Abdominal pain; Epigastric TECHNIQUE: Imaging protocol: Computed tomography of the abdomen and pelvis with contrast. Radiation optimization: All CT scans at this facility use at least one of these dose optimization techniques: automated exposure control; mA and/or kV adjustment per patient size (includes targeted exams where dose is matched to clinical indication); or iterative reconstruction. Contrast material: OMNI 350; Contrast volume: 100 ml; Contrast route: INTRAVENOUS (IV); COMPARISON: US OB <=14 wk fetus w transvag 10/01/2023 1:21 PM RADIATION DOSE METRICS: Total DLP (mGy-cm): 429.27 FINDINGS: Lungs: Lung bases are clear as visualized. Liver: There is diffuse fatty infiltration of the liver. The liver is otherwise normal. Gallbladder and biliary ducts: Normal. No calcified stones. No ductal dilation. Pancreas: Normal. No ductal dilation. Spleen: Normal. No splenomegaly. Adrenal glands: Normal. No mass. Kidneys and ureters: Normal. No hydronephrosis. Stomach and bowel: There is mild wall thickening involving the gastric antrum. No dilated loops of large or small bowel is appreciated. No bowel wall thickening is otherwise appreciated. Appendix: No evidence of appendicitis. Intraperitoneal space: Unremarkable. No free air. No significant fluid collection. Vasculature: Unremarkable. No abdominal aortic aneurysm. Lymph nodes: Unremarkable. No enlarged lymph nodes. Urinary bladder: Unremarkable as visualized. Reproductive: Unremarkable as visualized. Bones/joints: Unremarkable. No acute fracture. Soft tissues: There is a small fat filled periumbilical hernia. CT/CT abdomen pelvis w con* [id number] IMPRESSION: 1. Wall thickening involving the antrum of the stomach. This is likely inflammatory in origin. A physiologic cause or neoplastic cause is felt to be less likely. Recommend clinical correlation. Endoscopy may be of benefit for further evaluation. 2. Mild fatty infiltration of the liver.
[2024-03-18 04:51] LABS: Alanine Aminotransferase 11 U/L (0-33); Albumin Level 4.1 g/dL (3.5-5.2); Alkaline Phosphatase 53 U/L (35-105); Anion Gap 20.7 (5-19); Aspartate Amino Transferase 14 U/L (0-32); Blood Urea Nitrogen 36 mg/dL (6-20); Calcium 8.3 mg/dL (8.5-10.5); Carbon Dioxide 20 mmol/L (22-29); Chloride 99 mmol/L (98-107); Creatinine Clr Calc Pharmacy 78.7583; Globulin 2.4 g/dL (1.3-4.6); Glomerular Filtration Rate 70.5 mL/min (90-130); Glucose 184 mg/dL (65-115); Lipase 20 U/L (13-60); Osmolality Calculated 295 mOsm/kg (285-295); Potassium 3.7 mmol/L (3.5-5.1); Sodium 136 mmol/L (136-145); Total Bilirubin 0.5 mg/dL (0.15-1.2); Total Protein 6.5 g/dL (6.6-8.7)
[2024-03-18 04:52] LABS: Bilirubin Urine Negative (Negative); Blood Urine Trace (Negative); Glucose Urine UA Negative (Normal); Ketones Urine 2+ (Negative); Leukocyte Esterase Urine 1+ (Negative); Nitrate Urine Negative (Negative); Protein Urine Negative (Negative); Specific Gravity, Urine 1.025 (1.005-1.030); Urine Appearance Clear (CLEAR); Urine Color Yellow (Yellow); pH Urine 6.5 (5-7)
[2024-03-18 04:53] LABS: HCG, Serum Qual Negative (Negative)
[2024-03-18 04:56] LABS: Bacteria Urine Trace /hpf; RBC Urine 0-2 /hpf (0-2); Squamous Epithelial Cell Urine 0-5 /hpf (0-5)
[2024-03-18 05:02] LABS: Lactic Sepsis W/Reflex 4.1 mmol/L (0.5-2.2)
[2024-03-18] MEDS: pantoprazole 40 mg SDV 80 MG IVP (05:04)
[2024-03-18] MEDS: ondansetron 2 mg/ML SDV 2 mL 8 MG IVP (05:05)
[2024-03-18] MEDS: sodium chloride 0.9% 1,000 ML 999 ML IV ×2 (05:05→05:51)
[2024-03-18] MEDS: iohexol 350 mg/mL 500 mL Btl (per mL) IV (05:13)
[2024-03-18 05:16] LABS: INR 1.07 (0.8-1.2)
[2024-03-18 05:17] LABS: Partial Thromboplastin Time 25.5 SECONDS (23.9-36.7)
--- NOTE | 2024-03-18 05:21 | PM.HP ---
Providers/Chief Complaint Primary Care Provider: Cortez Roberts MD Chief Complaint: Vomiting Blood History of Present Illness Anthony Bruner is a 38 year old female with a past medical history significant for anemia secondary to bleeding ulcers and hypertension who presents to the emergency department with nausea and vomiting. Patient states she was in her usual state of health until yesterday when she started feeling poorly throughout most of the day. Around 7 PM she started with nausea and vomiting. She reports initially it was coffee-ground but then turned darker and noticed blood in it. She states emesis morning had blood clots. She states she had at least 4 large episodes. She endorses associated epigastric discomfort. Denies fevers, chills, or other new complaints. Denies alleviating or aggravating factors. She reports a history of prior ulcers and anemia in 2019. She underwent endoscopy at that time which revealed a very large ulcer. She was treated with PPI. Repeat endoscopy showed improvement but not resolution. Since that time she has been taken off of PPI. She denies alcohol abuse. She reports she does use Excedrin about twice a month for headaches. Review of Systems Narrative: A complete review of systems was obtained and is negative except as stated in HPI. Medications/Allergies Home Medications Medication Instructions Recorded Confirmed Last Taken Type vit no.133-ferrous tab PO 04/08/20 10/08/23 04/07/20 13:00 History fumarate 28 mg-folic acid 800 mcg tablet () doxylamine succinate 25 mg tablet See Rx Instructions .Route 09/10/23 10/08/23 Unknown Rx .COMPLEX PRN allergy symptoms #30 tabs pyridoxine (vitamin B6) 100 mg 100 mg PO BID PRN Nausea #60 tabs 09/10/23 10/08/23 Unknown Rx tablet ferrous sulfate 325 mg (65 mg 325 mg PO DAILY #30 tabs 09/15/23 10/08/23 Unknown Rx iron) tablet sertraline 25 mg tablet 25 mg PO DAILY #30 tabs 01/27/24 Unknown Rx Allergies Allergy/AdvReac Type Severity Reaction Status Date / Time No Known Allergies Allergy Verified 01/27/23 17:35 PFSH Acute PFSH: Medical History Hypertension Surgical History History of vaginal surgery Labioplasty - 2018 - Dr Hill [facility] [place] Family History Father Diabetes Social History Smoking and tobacco/nicotine status: never used tobacco/nicotine Alcohol intake: never Substance/Drug Use: never Current occupational status: employed Current occupation: [employer] Vitals/I&O/Wt Last Vital Signs Temp 98.7 F 03/18/24 04:31 Pulse 97 03/18/24 04:31 Resp 16 03/18/24 04:31 BP 98/66 03/18/24 05:01 Pulse Ox 100 03/18/24 04:31 O2 Del Method Room Air 03/18/24 04:27 Weight last 48 hrs Weight 67.132 kg Physical Exam Narrative: General: Patient is awake and alert. Head: Normocephalic. Atraumatic. EOM intact. Dry mucous membranes. Neck: No JVD. Cardiovascular: RRR. No gallops. No murmurs. No peripheral edema. Lungs: Clear to auscultation, no use of accessory muscles, no crackles or wheezes. Skin: No jaundice. No rashes. Abdomen: Normal bowel sounds, abdomen soft and nontender. Genito Urinary: Genital exam not performed since complaints not related. Rectal: Rectal exam not performed since no symptoms indicated blood loss. Extremities: No cyanosis or clubbing. Musculoskeletal: No swollen or erythematous joints. Neurological: Moves all 4 extremities. No myoclonus. Data 03/18/24 04:25 03/18/24 04:25 A&P Assessment and plan (1) Acute upper gastrointestinal bleeding: Presentation concerning for acute upper GI bleed BUN 36, hemoglobin 10.9 Status post IV PPI bolus Start IV PPI infusion Start IV fluids Trend hemoglobin General Surgery consulted N.p.o. pending general surgery evaluation Continues telemetry monitoring Admit to ICU for continuous cardiopulmonary monitoring (2) Acute blood loss anemia: Hemoglobin currently 10.9 Trend H&H Q6H Hemoglobin goal of at least 7 Management of underlying bleeding as above (3) Peptic ulcer disease: History of peptic ulcers in 2019 Management above for GI bleed as above (4) Leukocytosis: Suspect stress-induced Obtain procalcitonin Consider further imaging pending clinical course (5) Lactic acidosis: Lactic acidosis due to severe dehydration from intractable nausea/vomiting and blood loss Charting IV fluid resuscitation (6) Hypertension: Hold oral antihypertensives IV hydralazine as needed Plan DVT prophylaxis: SCD CODE STATUS: Full code Attestations Medical Necessity Statement*: Admit to observation as expected hospitalization not to cross 2 midnights for IV PPI infusion, IV fluids, general surgery evaluation, and supportive care. Coding Level of Care Code Acute Code for [facility] Diagnoses Acute upper gastrointestinal bleeding K92.2 Acute blood loss anemia D62 Peptic ulcer disease K27.9 Leukocytosis D72.829 Lactic acidosis E87.20 Hypertension I10
[2024-03-18 05:26] LABS: Amphetamines Screen Urine Negative (Negative); Barbiturates Screen Urine Negative (Negative); Benzodiazepines Screen Urine Negative (Negative); Cocaine Screen Urine Negative (Negative); Opiate Screen Urine Negative (Negative); PCP Screen Urine Negative (Negative); THC Screen Urine Negative (Negative)
[2024-03-18 06:20] LABS: Reflex Lactate Order REFLEX LACTIC ORDERD
[2024-03-18 06:31] LABS: Hematocrit 28.2 % (36-47)
[2024-03-18 06:44] LABS: Procalcitonin 0.06 ng/mL (0-0.5)
--- NOTE | 2024-03-18 06:59 | P.CONIM_ITS ---
Providers/Reason For Consult 2 Consulting Physician/Specialty*: General surgery Reason for Consult*: Acute upper GI bleeding Attending Physician: Cortez Samayoa MD Primary Care Provider: Cortez Roberts MD History of Present Illness History of Present Illness Anthony Bruner is a 38 year old female who presents to the hospital with 12 hours of epigastric abdominal discomfort followed by several episodes of hematemesis. She also has noted some melena. Denies episodes similar in the past that he has a history of gastric ulcers. Has not been taking any PPI. On my evaluation there is no abdominal pain patient is feeling better has not had appointment for last 3 hours. Review of Systems 2 General: Reports: 10 or more systems reviewed and unremarkable except in HPI and below Medications/Allergies Home Medications Medication Instructions Recorded Confirmed Last Taken Type vit no.133-ferrous tab PO 04/08/20 10/08/23 04/07/20 13:00 History fumarate 28 mg-folic acid 800 mcg tablet () doxylamine succinate 25 mg tablet See Rx Instructions .Route 09/10/23 10/08/23 Unknown Rx .COMPLEX PRN allergy symptoms #30 tabs pyridoxine (vitamin B6) 100 mg 100 mg PO BID PRN Nausea #60 tabs 09/10/23 10/08/23 Unknown Rx tablet ferrous sulfate 325 mg (65 mg 325 mg PO DAILY #30 tabs 09/15/23 10/08/23 Unknown Rx iron) tablet sertraline 25 mg tablet 25 mg PO DAILY #30 tabs 01/27/24 Unknown Rx Allergies Allergy/AdvReac Type Severity Reaction Status Date / Time No Known Allergies Allergy Verified 01/27/23 17:35 PFSH Acute 2 PFSH: Medical History Hypertension Surgical History History of vaginal surgery Labioplasty - 2018 - Dr Hill - [place] [facility] Family History Father Diabetes Social History Smoking and tobacco/nicotine status: never used tobacco/nicotine Alcohol intake: never Substance/Drug Use: never Current occupational status: employed Current occupation: [employer] Female Reproductive History: Date of last menstrual period: 02/26/24 Vitals/I&O/Wt Last Vital Signs Temp 98.7 F 03/18/24 06:02 Pulse 105 H 03/18/24 06:20 Resp 22 H 03/18/24 06:20 BP 112/77 03/18/24 06:20 Pulse Ox 100 03/18/24 06:20 O2 Del Method Room Air 03/18/24 05:57 Weight last 48 hrs Weight 149 lb 14.629 oz Weight 149 lb 14.629 oz Weight 149 lb 14.629 oz Weight 148 lb Physical Exam 2 Narrative: General : Patient is well developed , no acute distress, oriented x3 Head : Normal cephalic, a-traumatic. Nose : Mucous membranes are without erythema. Lungs : Equal chest rise bilaterally, no use of accessory muscles, trachea is midline. CV : Rate and rhythm are normal. Abdomen : Soft, ND, NT, no g/r/m Extremities : No edema. Upper extremities are normal bilaterally. Back : non-tender to palpation, no CVA tenderness. Data 03/18/24 06:23 03/18/24 04:25 A&P Assessment and plan (1) Acute upper gastrointestinal bleeding: Plan After complete history, physical examination and review of all available clinical data the following is my assessment. Patient presenting with acute upper GI bleeding, will likely benefit from urgent upper endoscopy. Patient will be admitted to the ICU under the medical team for resuscitation, I will plan to do upper endoscopy today. I have personally reviewed the imaging, there is antral thickening and the only concerning finding for me is that there is little bit of hyperdense material at the level of the posterior wall of the stomach which may represent an area of bleeding. I have explained the patient that with this findings there is a higher chance of failure of the initial endoscopic evaluation and she may need transfer to higher level of care for embolization after endoscopy. I discussed all the recent benefits of the endoscopy including the risk of rebleeding, bowel perforation, stomach perforation, esophageal perforation requiring surgical intervention transfer to higher level of care, lack of bleeding control, injury to the soft tissue of the mouth and pharynx, stomach wall necrosis, after discussion patient shows understanding wishes to proceed with endoscopy. -Continue to trend hemoglobin, patient appears to be hemoconcentrated may require blood transfusion. -N.p.o. and IV fluids -PPI drip -Endoscopy planned for today at 11am Coding Level of Care Code Acute Code for [facility] Diagnoses Acute upper gastrointestinal bleeding K92.2
[2024-03-18] MEDS: pantoprazole 40 MG in sodium chloride 0.9% (plus) 100 ML 20 MG IV (07:20)
[2024-03-18 07:57] LABS: Lactic Acid level (Lactate) 1.5 mmol/L (0.5-2.2)
[2024-03-18] MEDS: sucralfate 1 gm/10 mL Oral Liq UDC PO ×3 (08:39→20:35)
--- NOTE | 2024-03-18 08:53 | PC.PHAR ---
PT STATES ONLY TAKES ATENOLOL 25MG BY MOUTH DAILY. LAST DOSE WAS YESTERDAY. NO CURRENT ORDER FOUND AT [facility] OR OTHER EXTERNAL PHARMACY. WAS ONLY A VERBAL STATEMENT FROM PT.
--- NOTE | 2024-03-18 09:12 | ANES.PREANE2 ---
Pre-Anesthetic Assessment Height/Weight: Height 5 ft 3 in Weight 149 lb 14.629 oz Temp Pulse Resp BP Pulse Ox O2 Del Method 98.7 F 100 12 112/77 98 Room Air 03/18/24 06:02 03/18/24 08:30 03/18/24 08:30 03/18/24 08:30 03/18/24 08:30 03/18/24 05:57 Operation Date: 03/18/24 10:20 Proposed Procedures p EGD with possible biopsy and bleeding control(Not Applicable) - Del Vasquez MD Last intake: yesterday evening Social No alcohol and No tobacco Airway Submandibular: within normal limits Cervical ROM: within normal limits Mallampati: Class II Dentition: full Pulmonary None reported CV/HEM Hypertension patient did not take her AM atenolol, will plan to give BB prior to anesthesia GI hermataemesis, most recent emesis was 5 hours ago. Given protonix gtt, currently running. Patient admits to stomach discomfort Anesthetic Plan ASA status: 3 Anesthesia: General Other: Plan for ETT, hemodynamically stable at the moment but does consent to blood products if needed. Risk of > 500 ml blood loss (7ml/kg in children): Yes, adequate IV access and fluids planned Medications/Allergies Home Medications Medication Instructions Recorded Confirmed Last Taken Type atenolol 25 mg tablet 25 mg PO DAILY 03/18/24 03/18/24 03/17/24 History Allergies Allergy/AdvReac Type Severity Reaction Status Date / Time No Known Allergies Allergy Verified 01/27/23 17:35 Current Medications Generic Name Dose Route Start Last Admin Trade Name Nathaniel PRN Reason Stop Dose Admin Sodium Chloride 1,000 mls @ 30 mls/hr 03/18/24 05:57 03/18/24 07:14 Sodium Chloride 0.9% IV 03/19/24 05:56 Not Given .Q24H ONE Pantoprazole Sodium 40 mg/ 100 mls @ 20 mls/hr 03/18/24 06:00 03/18/24 07:20 Sodium Chloride IV 8 mg/hr .Q5H [place] 20 mls/hr Administration 8 MG/HR Sucralfate 1 gm 03/18/24 08:30 03/18/24 08:39 Sucralfate 1 Gm/10 Ml Oral Liq Udc PO 1 gm Q6H [place] Administration PFSH Anesthesia Medical History Hypertension Surgical History History of vaginal surgery Labioplasty - 2018 - Dr Hill [place] [facility] Family History Father Diabetes Social History Smoking and tobacco/nicotine status: never used tobacco/nicotine Alcohol intake: never Substance/Drug Use: never Current occupational status: employed Current occupation: [employer] Female Reproductive History Date of last menstrual period: 02/26/24 Data Anesthesia 03/18/24 06:23 03/18/24 04:25 Short CBC 03/18/24 03/18/24 Range/Units 04:25 06:23 WBC 22.10 H (3.29-11.43) 10^3/uL Hgb 10.90 L 9.30 L (11.27-16.99) g/dL Hct 33.9 L 28.2 L (36-47) % MCV 83.7 L (85-98) fl Plt Count 420 H (157-399) 10^3/cmm Neut % (Auto) 89.1 % Neut # (Auto) 19.68 H (1.8-7.7) 10^3/uL BMP 03/18/24 04:25 Sodium 136 Potassium 3.7 Chloride 99 Carbon Dioxide 20 L BUN 36 H Creatinine 0.9 Glucose 184 H Calcium 8.3 L Liver Function 03/18/24 Range/Units 04:25 Total Bilirubin 0.5 (0.15-1.2) mg/dL AST 14 (0-32) U/L ALT 11 (0-33) U/L Alkaline Phosphatase 53 (35-105) U/L Albumin 4.1 (3.5-5.2) g/dL Urine 03/18/24 Range/Units 04:30 Urine Color Yellow (Yellow) Urine Appearance Clear (CLEAR) Urine pH 6.5 (5-7) Ur Specific [place] 1.025 (1.005-1.030) Urine Protein Negative (Negative) Urine Glucose (UA) Negative (Normal) Urine Ketones 2+ H (Negative) Urine Nitrate Negative (Negative) Urine Bilirubin Negative (Negative) Ur Leukocyte Esterase 1+ A (Negative) Urine RBC 0-2 (0-2) /hpf Urine WBC 6-10 (0-5) /hpf Blood Bank 03/18/24 05:35 Blood Type O Positive Rho(D) Type Rh positive Antibody Screen Negative [place] 03/18/24 04:25 PT 14.30 INR 1.07 APTT 25.5 C-Reactive Protein 3.0 Cardiac Studies: No Data to Display
--- NOTE | 2024-03-18 09:49 | PC.NURSE ---
off unit with GI lab
[2024-03-18] MEDS: sodium chloride 0.9% 1,000 ML 30 ML IV (10:06)
[2024-03-18] MEDS: EPINEPHrine 1 mg/mL INJ XX (10:44)
--- NOTE | 2024-03-18 11:04 | P.PN_ITS ---
Subjective 2 Subjective: Patient was seen this morning, she tells me that her last EGD was through the surgery center, performed by Dr. Darnell, she is not sure if she tested positive for H. pylori or not, currently denies any bloody or black stools, no hematemesis, n.p.o. for EGD Vitals/I&O/Wt Last Vital Signs Temp 98.9 F 03/18/24 09:53 Pulse 91 03/18/24 09:53 Resp 18 03/18/24 09:53 BP 112/75 03/18/24 09:53 Pulse Ox 99 03/18/24 09:53 O2 Del Method Room Air 03/18/24 09:53 Weight last 48 hrs Weight 68 kg Weight 68 kg Weight 68 kg Weight 67.132 kg Physical Exam 2 Const: COMMON NORMALS: no acute distress and patient oriented x3 Resp: COMMON NORMALS: normal respiratory effort, No retractions, No use of accessory muscles and clear to auscultation bilaterally AUSCULTATION: clear to auscultation bilaterally Cardio: COMMON NORMALS: regular rate, regular rhythm, S1 normal heart sound present and S2 normal heart sound present RATE: regular rate RHYTHM: r egular rhythm HEART SOUNDS: S1 normal heart sound present and S2 normal heart sound present GI: COMMON NORMALS: Normal to inspection, nondistended, normoactive bowel sounds present and non-tender Extremity: COMMON NORMALS: no pedal edema Neuro: COMMON NORMALS: patient oriented x3 Data 03/18/24 06:23 03/18/24 04:25 A&P Assessment and plan (1) Acute upper gastrointestinal bleeding: Presentation concerning for acute upper GI bleed BUN 36, hemoglobin 9.3 Start IV PPI infusion Start IV fluids Trend hemoglobin General Surgery consulted N.p.o. pending general surgery evaluation Continues telemetry monitoring Admit to ICU for continuous cardiopulmonary monitoring Will undergo EGD, will see what her H. pylori testing shows Will also order serum gastrin levels, should be investigated for Eder- Ugarte syndrome (2) Acute blood loss anemia: Hemoglobin currently 9.3 Trend H&H Q6H Hemoglobin goal of at least 7 Management of underlying bleeding as above (3) Peptic ulcer disease: History of peptic ulcers in 2019 Management above for GI bleed as above (4) Leukocytosis: Suspect stress-induced Obtain procalcitonin, within normal limits Consider further imaging pending clinical course (5) Lactic acidosis: Lactic acidosis due to severe dehydration from intractable nausea/vomiting and blood loss Charting IV fluid resuscitation (6) Hypertension: Hold oral antihypertensives IV hydralazine as needed Plan DVT prophylaxis: SCD CODE STATUS: Full code Attestations 2 Medical Necessity Statement*: Patient requires hospitalization for upper GI bleed Diagnoses Acute upper gastrointestinal bleeding K92.2 Acute blood loss anemia D62 Peptic ulcer disease K27.9 Leukocytosis D72.829 Lactic acidosis E87.20 Hypertension I10
--- NOTE | 2024-03-18 11:16 | PC.NURSE ---
back on unit
--- NOTE | 2024-03-18 11:20 | ANE.PACU2 ---
Inpatient post-anesthesia follow up: Airway intact: Yes Vital signs: Temperature 98.9 F Pulse Rate 91 Respiratory Rate 18 Blood Pressure 112/75 Pulse Oximetry 99 Oxygen Delivery Me thod Room Air Oxygen Flow Rate Fraction of Inspir ed Oxygen Hydration adequate: Yes Nausea and vomiting: No Pain level: 1 Mental status: Baseline
[2024-03-18] MEDS: sodium chloride 0.9% 1,000 ML 75 ML IV ×2 (11:36→22:50)
--- NOTE | 2024-03-18 14:39 | PC.NURSE ---
HGB dropped, Dr. Das ordered 1 unit PRBC
[2024-03-18] MEDS: pantoprazole 40 mg SDV IVP (17:23)
[2024-03-18 21:54] LABS: Hematocrit 31.2 % (36-47)
[2024-03-19] VITALS (30 sets, daily range): BP systolic 93–127; BP diastolic 59–82; PULSE 75–109; RESP 12–20; TEMP 36.5–36.9; O2SAT 94–100
[2024-03-19 00:22] LABS: Hematocrit 28.9 % (36-47)
[2024-03-19] MEDS: sucralfate 1 gm/10 mL Oral Liq UDC PO ×4 (02:41→19:57)
[2024-03-19] MEDS: pantoprazole 40 mg SDV IVP ×2 (05:12→17:40)
[2024-03-19 05:14] LABS: Basophils % 0.1 %; Eosinophils % 0.1 %; Hematocrit 27.8 % (36-47); Lymphocytes # 2.3 10^3/uL (0.8-4.8); Lymphocytes % 17.3 %; Mean Corpuscular HGB Conc 33.1 g/dL (30-55); Mean Corpuscular Hemoglobin 28.1 pg (27-33); Monocytes # 0.6 10^3/uL (0.2-0.9); Monocytes % 4.8 %; Neutrophils # 10.35 10^3/uL (1.8-7.7); Neutrophils % 77.1 %; Nucleated Red Blood Cells % 0 %; Platelet Count 250 10^3/cmm (157-399); Red Blood Count 3.27 10^6/uL (3.85-5.65); Red Cell Distribution Width 13.8 % (12.1-15.1); White Blood Count 13.41 10^3/uL (3.29-11.43)
[2024-03-19 05:42] LABS: Alanine Aminotransferase 7 U/L (0-33); Albumin Level 3.2 g/dL (3.5-5.2); Alkaline Phosphatase 40 U/L (35-105); Anion Gap 11.9 (5-19); Aspartate Amino Transferase 11 U/L (0-32); Blood Urea Nitrogen 14 mg/dL (6-20); Calcium 7.3 mg/dL (8.5-10.5); Carbon Dioxide 22 mmol/L (22-29); Chloride 112 mmol/L (98-107); Creatinine Clr Calc Pharmacy 89.1308; Globulin 1.9 g/dL (1.3-4.6); Glomerular Filtration Rate 80.7 mL/min (90-130); Glucose 110 mg/dL (65-115); Magnesium 2.3 mg/dL (1.7-2.3); Osmolality Calculated 295 mOsm/kg (285-295); Phosphorus 2.1 mg/dL (2.5-4.5); Potassium 3.9 mmol/L (3.5-5.1); Sodium 142 mmol/L (136-145); Total Bilirubin 0.4 mg/dL (0.15-1.2); Total Protein 5.1 g/dL (6.6-8.7)
--- NOTE | 2024-03-19 09:01 | P.PN_ITS ---
Subjective 2 Subjective: Patient doing well this morning, no nausea no vomiting, no significant abdominal pain. Vitals/I&O/Wt Last Vital Signs Temp 98.5 F 03/19/24 05:13 Pulse 84 03/19/24 08:00 Resp 19 H 03/18/24 21:30 BP 104/73 03/19/24 08:00 Pulse Ox 98 03/19/24 08:00 O2 Del Method Room Air 03/18/24 09:53 03/18/24 03/19/24 03/19/24 22:59 06:59 14:59 Intake Total 3292.5 / 4092.5 1200 / 1200 Balance 3292.5 / 4092.5 1200 / 1200 Weight last 48 hrs Weight 155 lb 1.6 oz Weight 149 lb 14.629 oz Weight 149 lb 14.629 oz Weight 149 lb 14.629 oz Weight 148 lb Physical Exam 2 Narrative: General : Patient is well developed , no acute distress, oriented x3 Head : Normal cephalic, a-traumatic. Nose : Mucous membranes are without erythema. Lungs : Equal chest rise bilaterally, no use of accessory muscles, trachea is midline. CV : Rate and rhythm are normal. Abdomen : Soft, ND, NT, no g/r/m Extremities : No edema. Upper extremities are normal bilaterally. Back : non-tender to palpation, no CVA tenderness. Data 03/19/24 04:49 03/19/24 04:49 A&P Assessment and plan (1) Acute upper gastrointestinal bleeding: Plan Patient showing good progression after upper endoscopy for acute upper GI bleeding, GI bleeding noted to be likely due to Nancy-Connolly tear as well as gastric ulcerations. Patient has remained stable, there was a outlier of a hemoglobin below 7 but after transfusion the hemoglobin trended back up to 10, which may indicate that this outlier was not effectively representing patient clinical status. Since then her hemoglobin has remained stable, patient vital signs are stable and her clinical condition is good. We will advance diet as tolerated, the plan is for discharge home on pantoprazole twice a day and Carafate 4 times a day and she will follow-up in my clinic in 2 weeks, the time we will discuss a repeat endoscopy in 6 to 8 weeks. All other management per primary Attestations 2 Medical Necessity Statement*: Per medical team Coding Level of Care Code Acute Code for Chg Fwd Diagnoses Acute upper gastrointestinal bleeding K92.2
--- NOTE | 2024-03-19 11:19 | P.PN_ITS ---
Subjective 2 Subjective: Patient was seen this morning, denies any nausea, no vomiting, no abdominal pain, no lightheadedness, no dizziness Vitals/I&O/Wt Last Vital Signs Temp 98.5 F 03/19/24 05:13 Pulse 84 03/19/24 08:00 Resp 19 H 03/18/24 21:30 BP 104/73 03/19/24 08:00 Pulse Ox 98 03/19/24 08:00 O2 Del Method Room Air 03/18/24 09:53 03/18/24 03/19/24 03/19/24 22:59 06:59 14:59 Intake Total 3292.5 / 4092.5 1200 / 1200 Balance 3292.5 / 4092.5 1200 / 1200 Weight last 48 hrs Weight 70.352 kg Weight 68 kg Weight 68 kg Weight 68 kg Weight 67.132 kg Physical Exam 2 Const: COMMON NORMALS: no acute distress and patient oriented x3 Resp: COMMON NORMALS: normal respiratory effort, No retractions, No use of accessory muscles and clear to auscultation bilaterally AUSCULTATION: clear to auscultation bilaterally Cardio: COMMON NORMALS: regular rate, regular rhythm, S1 normal heart sound present and S2 normal heart sound present RATE: regular rate RHYTHM: r egular rhythm HEART SOUNDS: S1 normal heart sound present and S2 normal heart sound present GI: COMMON NORMALS: Normal to inspection, nondistended, normoactive bowel sounds present and non-tender Extremity: COMMON NORMALS: no pedal edema Neuro: COMMON NORMALS: patient oriented x3 Psych: COMMON NORMALS: mental status grossly normal Data 03/19/24 04:49 03/19/24 04:49 A&P Assessment and plan (1) Acute upper gastrointestinal bleeding: Presentation concerning for acute upper GI bleed EGD showed Nancy-Connolly tear as well as gastric ulcerations Hemoglobin down to 6.9 status post 1 unit PRBC, currently hemoglobin 9.2 Protonix 40 IV twice daily Carafate Trend hemoglobin every 6 hours General Surgery consulted Continue clear liquid Continues telemetry monitoring Will moved to [facility] Will undergo EGD, will see what her H. pylori testing shows Will also order serum gastrin levels, should be investigated for Eder- Ugarte syndrome (2) Acute blood loss anemia: Hemoglobin currently 9.2, status post 1 unit PRBC Trend H&H Q6H Hemoglobin goal of at least 7 Management of underlying bleeding as above (3) Peptic ulcer disease: History of peptic ulcers in 2020 Management above for GI bleed as above (4) Leukocytosis: Suspect stress-induced Obtain procalcitonin, within normal limits Consider further imaging pending clinical course (5) Lactic acidosis: Lactic acidosis due to severe dehydration from intractable nausea/vomiting and blood loss Charting IV fluid resuscitation (6) Hypertension: Hold oral antihypertensives IV hydralazine as needed Plan DVT prophylaxis: SCD, anticoagulation relatively contraindicated given her history of GI bleed CODE STATUS: Full code Attestations 2 Medical Necessity Statement*: Patient requires hospitalization for acute upper GI bleed, acute anemia Diagnoses Acute upper gastrointestinal bleeding K92.2 Acute blood loss anemia D62 Peptic ulcer disease K27.9 Leukocytosis D72.829 Lactic acidosis E87.20 Hypertension I10
[2024-03-19 12:31] LABS: Hematocrit 29.2 % (36-47)
[2024-03-19] MEDS: ondansetron 2 mg/ML SDV 2 mL 4 MG IVP ×2 (15:18→23:28)
[2024-03-19 18:04] LABS: Hematocrit 28.2 % (36-47)
[2024-03-19] MEDS: lidocaine 5% Patch 1 PATCH TOPICAL (22:52)
[2024-03-20 01:11] LABS: Hematocrit 26.7 % (36-47)
[2024-03-20] MEDS: sucralfate 1 gm/10 mL Oral Liq UDC PO ×2 (01:40→08:53)
[2024-03-20 04:00] VITALS: BP 123/80; PULSE 90; RESP 20; TEMP 36.4; O2SAT 97
[2024-03-20 04:02] LABS: Basophils % 0.2 %; Eosinophils # 0.2 10^3/uL (0.0-0.8); Eosinophils % 1.8 %; Hematocrit 28.3 % (36-47); Lymphocytes # 2.8 10^3/uL (0.8-4.8); Lymphocytes % 33.8 %; Mean Corpuscular HGB Conc 31.8 g/dL (30-55); Mean Corpuscular Hemoglobin 27.9 pg (27-33); Mean Corpuscular Volume 87.6 fl (85-98); Mean Platelet Volume 10.6 fL (7.4-10.4); Monocytes # 0.4 10^3/uL (0.2-0.9); Monocytes % 4.7 %; Neutrophils # 4.89 10^3/uL (1.8-7.7); Nucleated Red Blood Cells % 0 %; Platelet Count 206 10^3/cmm (157-399); Red Blood Count 3.23 10^6/uL (3.85-5.65); Red Cell Distribution Width 13.6 % (12.1-15.1); White Blood Count 8.29 10^3/uL (3.29-11.43)
[2024-03-20 04:19] LABS: Blood Urea Nitrogen 9 mg/dL (6-20); Calcium 7.4 mg/dL (8.5-10.5); Carbon Dioxide 23 mmol/L (22-29); Chloride 107 mmol/L (98-107); Creatinine Clr Calc Pharmacy 102.0798; Glomerular Filtration Rate 94.2 mL/min (90-130); Glucose 95 mg/dL (65-115); Osmolality Calculated 288 mOsm/kg (285-295); Sodium 140 mmol/L (136-145)
[2024-03-20 04:26] LABS: Anion Gap 13.8 (5-19); Potassium 3.8 mmol/L (3.5-5.1)
[2024-03-20 04:37] VITALS: PULSE 76
[2024-03-20] MEDS: pantoprazole 40 mg SDV IVP (05:25)
[2024-03-20 07:10] VITALS: BP 120/80; PULSE 90; RESP 18; TEMP 36.3; O2SAT 100
--- NOTE | 2024-03-20 09:44 | P.DS_ITS ---
Discharge Providers Date of Admission: 03/18/24 14:21 Date of Discharge: March 20, 2024 Attending Provider at Admission: Cortez Samayoa MD Attending Provider at Discharge: Geoff Rueda MD Primary Care Provider: Cortez Roberts MD Diagnoses at Discharge Discharge Diagnosis (1) Acute upper gastrointestinal bleeding: Status: Acute (2) Acute blood loss anemia: Status: Acute (3) Peptic ulcer disease: Status: Acute (4) Leukocytosis: Status: Acute (5) Lactic acidosis: Status: Acute (6) Hypertension: Status: Acute Reason for Visit Reason for Visit: Vomiting Blood Hospital Course Hospital Course Anthony Bruner is a 38 year old female with a past medical history significant for anemia secondary to bleeding ulcers and hypertension who presents to the emergency department with nausea and vomiting. Patient states she was in her usual state of health until yesterday when she started feeling poorly throughout most of the day. Around 7 PM she started with nausea and vomiting. She reports initially it was coffee-ground but then turned darker and noticed blood in it. She states emesis morning had blood clots. She states she had at least 4 large episodes. She endorses associated epigastric discomfort. Denies fevers, chills, or other new complaints. Denies alleviating or aggravating factors. She reports a history of prior ulcers and anemia in 2019. She underwent endoscopy at that time which revealed a very large ulcer. She was treated with PPI. Repeat endoscopy showed improvement but not resolution. Since that time she has been taken off of PPI. She denies alcohol abuse. She reports she does use Excedrin about twice a month for headaches. Patient was admitted to [facility] for acute upper GI bleed, status post 1 unit PRBC, EGD showed Nancy-Connolly tear, as well as gastric ulcerations, was monitored for over 48 hours on Protonix, Carafate, medical management, overall clinically improved no recurrent bloody or black stools, no hemodynamic compromise, hemoglobin discharge 9.2. Patient will be discharged on instructions to slowly advance diet, have her primary care provider recheck your hemoglobin next week, follow-up with general surgery in 2 weeks, Protonix, Carafate. In terms of workup for recurrent gastric ulcerations, I have ordered a gastrin level which should be followed up through primary care and general surgery as outpatient. If elevated consider referral to GI for evaluation of Eder-Ugarte syndrome. She did have a biopsy of the gastric ulcerations follow-up with general surgery for biopsy results for H. pylori results. Advised patient that if she has any recurrent bloody or black stools or bloody vomit to immediately go to the emergency room. Patient was advised to avoid any NSAIDs, avoid any gastric irritants. Physical Exam Const: COMMON NORMALS: no acute distress and patient oriented x3 Resp: COMMON NORMALS: normal respiratory effort, No retractions, No use of accessory muscles and clear to auscultation bilaterally AUSCULTATION: clear to auscultation bilaterally Cardio: COMMON NORMALS: regular rate, regular rhythm, S1 normal heart sound present and S2 normal heart sound present RATE: regular rate RHYTHM: regular rhythm HEART SOUNDS: S1 normal heart sound present and S2 normal heart sound present GI: COMMON NORMALS: Normal to inspection, nondistended, normoactive bowel sounds present and non-tender Extremity: COMMON NORMALS: no pedal edema Neuro: COMMON NORMALS: patient oriented x3 Psych: COMMON NORMALS: mental status grossly normal Discharge Data Studies Completed and Pending Completed Studies During Hospitalization Category Date Time Status CT abdomen pelvis w con* [id number] Stat Cat Scan 03/18/24 04:48 Completed Pending at discharge Category Date Time Status Basic Metabolic Panel AM LABS Lab 03/21/24 04:00 Ordered Basic Metabolic Panel AM LABS Lab 03/22/24 04:00 Ordered Complete Blood Count w/Auto AM LABS Lab 03/21/24 04:00 Ordered Complete Blood Count w/Auto AM LABS Lab 03/22/24 04:00 Ordered Gastrin Stat Lab 03/18/24 11:52 Received PRBC [Leukocyte Reduced RBC] Routine Lab 03/18/24 05:35 Results Type and Screen Stat Lab 03/18/24 05:35 Results Pathology: Surgical [PTH] Routine Pth 03/18/24 11:18 Received Radiology Impressions Abdomen/Pelvis CT 03/18/24 04:48 IMPRESSION: 1. Wall thickening involving the antrum of the stomach. This is likely inflammatory in origin. A physiologic cause or neoplastic cause is felt to be less likely. Recommend clinical correlation. Endoscopy may be of benefit for further evaluation. 2. Mild fatty infiltration of the liver. Laboratory Results WBC 8.29 10^3/uL (3.29-11.43) 03/20/24 03:41 RBC 3.23 10^6/uL (3.85-5.65) L 03/20/24 03:41 Hgb 9.00 g/dL (11.27-16.99) L 03/20/24 03:41 Hct 28.3 % (36-47) L 03/20/24 03:41 MCV 87.6 fl (85-98) 03/20/24 03:41 MCH 27.9 pg (27-33) 03/20/24 03:41 MCHC 31.8 g/dL (30-55) 03/20/24 03:41 RDW 13.6 % (12.1-15.1) 03/20/24 03:41 Plt Count 206 10^3/cmm (157-399) 03/20/24 03:41 MPV 10.6 fL (7.4-10.4) H 03/20/24 03:41 Neut % (Auto) 59.0 % 03/20/24 03:41 Lymph % (Auto) 33.8 % 03/20/24 03:41 [place] % (Auto) 4.7 % 03/20/24 03:41 Eos % (Auto) 1.8 % 03/20/24 03:41 Baso % (Auto) 0.2 % 03/20/24 03:41 Neut # (Auto) 4.89 10^3/uL (1.8-7.7) 03/20/24 03:41 Lymph # (Auto) 2.8 10^3/uL (0.8-4.8) 03/20/24 03:41 [place] # (Auto) 0.4 10^3/uL (0.2-0.9) 03/20/24 03:41 Eos # (Auto) 0.2 10^3/uL (0.0-0.8) 03/20/24 03:41 Baso # (Auto) 0.0 10^3/uL (0.0-0.1) 03/20/24 03:41 Nucleated RBC % (auto) 0 % 03/20/24 03:41 Nucleated RBCs # 0.0 /100WBC 03/20/24 03:41 PT 14.30 SECONDS (12.1-14.9) 03/18/24 04:25 INR 1.07 (0.8-1.2) 03/18/24 04:25 APTT 25.5 SECONDS (23.9-36.7) 03/18/24 04:25 Sodium 140 mmol/L (136-145) 03/20/24 03:41 Potassium 3.8 mmol/L (3.5-5.1) 03/20/24 03:41 Chloride 107 mmol/L (98-107) 03/20/24 03:41 Carbon Dioxide 23 mmol/L (22-29) 03/20/24 03:41 Anion Gap 13.8 (5-19) 03/20/24 03:41 BUN 9 mg/dL (6-20) 03/20/24 03:41 Creatinine 0.7 mg/dL (0.5-0.9) 03/20/24 03:41 GFR Calculation 94.2 mL/min (90-130) 03/20/24 03:41 Glucose 95 mg/dL (65-115) 03/20/24 03:41 Calculated Osmolality 288 mOsm/kg (285-295) 03/20/24 03:41 Lactic Acid 4.1 mmol/L (0.5-2.2) H* 03/18/24 04:25 Lactic Acid (Sepsis) 1.5 mmol/L (0.5-2.2) 03/18/24 07:25 Calcium 7.4 mg/dL (8.5-10.5) L 03/20/24 03:41 Phosphorus 2.1 mg/dL (2.5-4.5) L 03/19/24 04:49 Magnesium 2.3 mg/dL (1.7-2.3) 03/19/24 04:49 Total Bilirubin 0.4 mg/dL (0.15-1.2) 03/19/24 04:49 AST 11 U/L (0-32) 03/19/24 04:49 ALT 7 U/L (0-33) 03/19/24 04:49 Alkaline Phosphatase 40 U/L (35-105) 03/19/24 04:49 C-Reactive Protein 3.0 mg/L (0.0-4.9) 03/18/24 04:25 Total Protein 5.1 g/dL (6.6-8.7) L 03/19/24 04:49 Albumin 3.2 g/dL (3.5-5.2) L 03/19/24 04:49 Globulin 1.9 g/dL (1.3-4.6) 03/19/24 04:49 Lipase 20 U/L (13-60) 03/18/24 04:25 Procalcitonin 0.06 ng/mL (0-0.5) 03/18/24 04:25 HCG, Qual Negative (Negative) 03/18/24 04:25 Urine Color Yellow (Yellow) 03/18/24 04:30 Urine Appearance Clear (CLEAR) 03/18/24 04:30 Urine pH 6.5 (5-7) 03/18/24 04:30 Ur Specific [place] 1.025 (1.005-1.030) 03/18/24 04:30 Urine Protein Negative (Negative) 03/18/24 04:30 Urine Glucose (UA) Negative (Normal) 03/18/24 04:30 Urine Ketones 2+ (Negative) H 03/18/24 04:30 Urine Blood Trace (Negative) A 03/18/24 04:30 Urine Nitrate Negative (Negative) 03/18/24 04:30 Urine Bilirubin Negative (Negative) 03/18/24 04:30 Urine Urobilinogen 1.0 mg/dL (Negative) 03/18/24 04:30 Ur Leukocyte Esterase 1+ (Negative) A 03/18/24 04:30 Urine RBC 0-2 /hpf (0-2) 03/18/24 04:30 Urine WBC 6-10 /hpf (0-5) 03/18/24 04:30 Ur Squamous Epith Cells 0-5 /hpf (0-5) 03/18/24 04:30 Amorphous Sediment Not Reportable 03/18/24 04:30 Urine Bacteria Trace /hpf (NONE) 03/18/24 04:30 Hyaline Casts 0.40 /lpf 03/18/24 04:30 Urine Opiates Screen Negative ng/mL (Negative) 03/18/24 04:30 Ur Barbiturates Screen Negative ng/mL (Negative) 03/18/24 04:30 Ur Phencyclidine Scrn Negative ng/mL (Negative) 03/18/24 04:30 Ur Amphetamines Screen Negative ng/mL (Negative) 03/18/24 04:30 U Benzodiazepines Scrn Negative ng/mL (Negative) 08/15/24 04:30 Urine Cocaine Screen Negative ng/mL (Negative) 03/18/24 04:30 U Marijuana (THC) Screen Negative ng/mL (Negative) 03/18/24 04:30 Blood Type O Positive 03/18/24 05:35 Rho(D) Type Rh positive 03/18/24 05:35 Antibody Screen Negative 03/18/24 05:35 Crossmatch See Detail 03/18/24 05:35 Vitals Last Vital Signs Temp 97.4 F L 03/20/24 07:10 Pulse 90 03/20/24 07:10 Resp 18 03/20/24 07:10 BP 120/80 03/20/24 07:10 Pulse Ox 100 03/20/24 07:10 O2 Del Method Room Air 03/20/24 07:10 Discharge Plan Discharge Patient Disposition: Home Condition: Stable Prescriptions: New pantoprazole [Protonix] 40 mg tablet,delayed release (DR/EC) 40 mg PO BID 30 Days Qty: 60 0RF sucralfate [Carafate] 1 gram tablet 1 g PO BID 28 Days Qty: 56 0RF ferrous sulfate 325 mg (65 mg iron) tablet 325 mg PO BID 30 Days Qty: 60 0RF Continued atenolol 25 mg Tablet 25 mg PO DAILY Discharge Orders: Discharge Order (Routine); Ordered 03/20/24 Ordered By: Geoff Rueda Referrals: Del Vasquez MD [Physician] - 2 weeks Cortez Roberts MD [Primary Care Provider] - Discharge Diet: GI Soft Discharge Activity: Resume usual activity Patient Instructions: Gastrointestinal Bleeding (GEN), GI (Gastrointestinal) Soft Diet (DC), GI Post Discharge Instructions w/ Anesthesia, Opioid Safety Activity Restrictions/Additional Instructions: - Please have your primary care provider recheck your hemoglobin next week ? Avoid any NSAIDs, ? If you develop bloody black stools or bloody vomit please go to the emergency room ? Please follow-up with general surgery in 2 weeks Discharge Attestations Time Spent in Discharge Care*: greater than 30 min Quality Metrics Clinical Quality Measures [ No reported AMI, CVA or VTE this stay] Coding Level of Care Code 63693 Total time (in minutes) for Discharge: 45 Diagnoses Acute upper gastrointestinal bleeding K92.2 Acute blood loss anemia D62 Peptic ulcer disease K27.9 Leukocytosis D72.829 Lactic acidosis E87.20 Hypertension I10
[2024-03-20 10:42] VITALS: BP 120/80; PULSE 90; RESP 18; TEMP 36.3; O2SAT 100
[2024-03-23 22:39] LABS: Gastrin 175 pg/mL (< OR = 100)
== END 2024-03-20 10:20 | disposition home or self-care (01) | DRG 369 ==
LOC: ER 05:12 → ICU 05:25 → MEDSURG 03-19 11:41
PROVIDERS: Surgery; Admitting Provider Internal Medicine; Emergency Provider Emergency Medicine; PCP Family Medicine; Visit Provider Family Medicine
PROC: 0DJ08ZZ Inspection of Upper Intestinal Tract, Via Natural or Artificial Opening Endoscopic (ICD-10-PCS; CPT 43235; principal; 2024-03-18 10:20)
DX: K22.6 Gastro-esophageal laceration-hemorrhage syndrome (principal); D62 Acute posthemorrhagic anemia; E87.20 Acidosis, unspecified; I10 Essential (primary) hypertension; K25.4 Chronic or unspecified gastric ulcer with hemorrhage; Z87.11 Personal history of peptic ulcer disease
CPT/HCPCS: 36415; 36430; 43239; 74177; 80048; 80053; 80306; 81001; 82941; 83605; 83690; 83735; 84100; 84145; 84703; 85014; 85018; 85025; 85610; 85730; 86140; 86850; 86900; 86920; 88305; 88342; 96374; 96375; 99285; G0378; J0171; J1100; J2405; J2470; J2704; J3010; J3490; J7030; P9016; Q9967

== ENCOUNTER → 2024-03-29 13:20 | Outpatient (BNVA) | payer BC, SELFPAY | PROVIDERS: PCP Family Medicine; Visit Provider Family Medicine | DX: Z51.81 Encounter for therapeutic drug level monitoring (principal); K27.9 Peptic ulcer, site unspecified, unspecified as acute or chronic, without hemorrhage or perforation; D64.9 Anemia, unspecified | CPT/HCPCS: 85025 ==

== ENCOUNTER → 2025-03-07 11:36 | Outpatient (BNVA) | payer BC, SELFPAY | PROVIDERS: PCP Family Medicine; Visit Provider Family Medicine | DX: Z00.00 Encounter for general adult medical examination without abnormal findings (principal); E16.4 Increased secretion of gastrin; R53.81 Other malaise; R53.83 Other fatigue; Z51.81 Encounter for therapeutic drug level monitoring | CPT/HCPCS: 80053; 82941; 84439; 84443; 85025 ==

== ENCOUNTER 2025-04-10 20:50 | Observation (INO) | payer BC, SELFPAY ==
--- OUTSIDE RECORDS SUMMARY | 2025-04-10 20:58 | XMS_ITS | Clinical Summary ---
Author Organization [facility] Address [address] [place] [address] Care Team Providers Care Licensed Midwife Name Role Phone Unavailable Primary Care Provider Unavailabl e Allergies No known active allergies Medications PARoxetine HCl (PAXIL) 20 mg tablet Take 20 mg by mouth daily. Active metoprolol tartrate (LOPRESSOR) 25 mg tablet Take 25 mg by mouth 2 times daily. Active ferrous sulfate 325 mg (65 mg iron) tablet Take 325 mg by mouth daily. Active mv-min/iron/folic /calcium/vitK (WOMEN'S MULTIVITAMIN ORAL) Take by mouth. Active multivitamin with minerals (HAIR,SKIN AND NAILS ORAL) Take by mouth. 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[employer] Gender Identity Not on file Sexual Orientation Not on file Last Filed Vital Signs Vital Sign Reading Time Taken Comments Blood Pressure 125/75 01/22/2021 11:34 AM CDT Pulse 99 11/16/2020 12:26 PM CDT Temperature - - Respiratory Rate - - Oxygen Saturation - - Inhaled Oxygen Concentration - - Weight 59.9 kg (132 lb) 01/22/2021 11:34 AM CDT Height 160 cm (5' 3 ) 01/22/2021 11:34 AM CDT Body Mass Index 23.38 01/22/2021 11:34 AM CDT Plan of Treatment Health Maintenance Due Date Last Done Comments DTAP/TDAP/TD VACCINES (1 - Tdap) 2005 HEPATITIS B VACCINES (1 of 3 - 19+ 3-dose series) 03/05 HPV/Cotest (21-29) 2007 HPV VACCINES (1 - 3-dose SCDM series) 2013 CERVICAL CANCER SCREENING 2016 HPV/Cotest (30-65) 2016 PAP SMEAR 2016 INFLUENZA VACCINE (#1) 2025 Insurance [facility] Member Subscriber Plan / Payer (Ef fective 2020-Present) Name:Anthony Bruner Relation to Subscriber:Self Name:Anthony Bruner Payer ID:Not on file Type:[employer] Address: [address] [place] [id number]
--- OUTSIDE RECORDS SUMMARY | 2025-04-10 20:58 | XMS_ITS | Clinical Summary ---
Author Organization [facility] Address [address] Stewart: [place] [address] Care Team Providers Care Associate Professor Of Church Music Name Role Phone Unavailable Primary Care Provider Unavailabl e Allergies No known active allergies Medications mv-min/iron/folic /calcium/vitK (WOMEN'S MULTIVITAMIN ORAL) Take by mouth. 11/16/2020 Active ferrous sulfate 325 mg (65 mg iron) tablet Take 325 mg by mouth daily. 11/16/2020 Active pantoprazole (PROTONIX) 40 mg Tablet, Delayed Release (E.C.) Take 1 Tablet by mouth 2 times daily. 04/15/2024 Active Carafate 1 gram tablet Take 1 Gram by mouth 4 times daily before meals and at bedtime. 03/18/2024 Active Active Problems No known active problems Encounters Date Type Department Care Team Description 03/22/2025 External Device Data [facility]STRACTION Provider, Abstract 03/22/2025 External Device Data [facility]CTION Provider, Abstract 03/08/2025 External Device Data [facility]CTION Provider, Abstract 02/16/2025 External Device Data [facility] Provider, Abstract 02/15/2025 External Device Data [facility]STRACTION Provider, Abstract 01/25/2025 External Device Data [facility]STRACTION Provider, Abstract 01/18/2025 External Device Data [facility] ABSTRACTION Provider, Abstract from Last 3 Months Family History Medical History Relation Name Comments Diabetes Father Hypertension Father Relation Name Status Comments Father Social History Tobacco Use Types Packs/Day Years Used Date Smoking Tobacco: Former Cigarettes Q uit: 11/16/2010 Smokeless Tobacco: Never Comments:Quit smoking: ralf dubon Alcohol Use Standard Drinks/Week Comments Never 0 (1 standard drink = 0.6 oz pur e alcohol) Feeling Safe Answer Date Recorded Are you in a relationship wi th someone who hurts you emotionally and/or physically? 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 Gender Identity Not on file Sexual Orientation Not on file Last Filed Vital Signs Vital Sign Reading Time Taken Comments Blood Pressure 107/70 05/31/2024 2:25 PM CDT Pulse 88 05/31/2024 2:25 PM CDT Temperature - - Respiratory Rate 14 05/31/2024 2:25 PM CDT Oxygen Saturation 97% 05/31/2024 2:25 PM CDT Inhaled Oxygen Concentration - - Weight 64 kg (141 lb) 04/30/2024 9:36 AM CDT Height 160 cm (5' 3 ) 04/30/2024 9:36 AM CDT Body Mass Index 24.98 04/30/2024 9:36 AM CDT Plan of Treatment Health Maintenance Due Date Last Done Comments DTAP/TDAP/TD VACCINES (1 - Tdap) 2005 HEPATITIS B VACCINES (1 of 3 - 19+ 3-dose series) 03/05 HPV/Cotest (21-29) 2007 HPV VACCINES (1 - 3-dose SCDM series) 2013 CERVICAL CANCER SCREENING 2016 HPV/Cotest (30-65) 2016 PAP SMEAR 2016 INFLUENZA VACCINE (#1) 2025 Insurance [facility] BLUE ACCESS/TRUE BLUE PPO [facility]
[2025-04-10 20:59] VITALS: BP 100/68; PULSE 89; TEMP 36.7; O2SAT 100
[2025-04-10 22:00] VITALS: BP 97/68; PULSE 80; RESP 18; O2SAT 100
[2025-04-10 22:32] LABS: Hematocrit 32.4 % (36-47); Hemoglobin 10.50 g/dL (11.27-16.99); Mean Corpuscular HGB Conc 32.4 g/dL (30-55); Mean Corpuscular Hemoglobin 27.3 pg (27-33); Mean Corpuscular Volume 84.4 fl (85-98); Nucleated Red Blood Cells % 0 %; Platelet Count 314 10^3/cmm (157-399); Red Blood Count 3.84 10^6/uL (3.85-5.65); White Blood Count 12.70 10^3/uL (3.29-11.43)
--- NOTE | 2025-04-10 22:40 | CTR_ITS ---
PROCEDURE INFORMATION: Exam: CT Abdomen And Pelvis With Contrast Exam date and time: 04/10/2025 11:26 PM Age: 40 years old Clinical indication: Vomiting; Abdominal pain; Epigastric pain with coffee ground emesis; Additional info: Epigastric pain, vomiting blood TECHNIQUE: Imaging protocol: Computed tomography of the abdomen and pelvis with contrast. Radiation optimization: All CT scans at this facility use at least one of these dose optimization techniques: automated exposure control; mA and/or kV adjustment per patient size (includes targeted exams where dose is matched to clinical indication); or iterative reconstruction. Contrast material: OMNI 350; Contrast volume: 100 ml; Contrast route: INTRAVENOUS (IV); COMPARISON: CT abdomen pelvis w con* [id number] 03/18/2024 5:09 AM RADIATION DOSE METRICS: Total DLP (mGy-cm): 444.31 FINDINGS: Liver: Hepatic steatosis. Gallbladder and biliary ducts: Normal. No calcified stones. No ductal dilation. Pancreas: Normal. No ductal dilation. Spleen: Normal. No splenomegaly. Adrenal glands: Normal. No mass. Kidneys and ureters: Normal. No hydronephrosis. Stomach and bowel: Gastric antrum wall thickening, please correlate for gastritis. A mass is also a consideration. Correlation with endoscopy should be considered. Similar findings were seen on prior exam. Appendix: No evidence of appendicitis. Intraperitoneal space: Unremarkable. No free air. No significant fluid collection. Vasculature: Unremarkable. No abdominal aortic aneurysm. Lymph nodes: Unremarkable. No enlarged lymph nodes. Urinary bladder: Unremarkable as visualized. Reproductive: Fluid in the uterine cavity likely related to menstrual status. Bones/joints: Unremarkable. No acute fracture. Soft tissues: Unremarkable. CT/CT abdomen pelvis w con* [id number] IMPRESSION: 1. Gastric antrum wall thickening, please correlate for gastritis. A mass is also a consideration. Correlation with endoscopy should be considered. Similar findings were seen on prior exam. 2. Hepatic steatosis. 3. Fluid in the uterine cavity likely related to menstrual status.
[2025-04-10 22:58] LABS: Alanine Aminotransferase 17 U/L (0-33); Albumin Level 4.1 g/dL (3.5-5.2); Alkaline Phosphatase 67 U/L (35-105); Anion Gap 15.1 (5-19); Aspartate Amino Transferase 18 U/L (0-32); Blood Urea Nitrogen 30 mg/dL (6-20); Calcium 8.5 mg/dL (8.5-10.5); Carbon Dioxide 25 mmol/L (22-29); Chloride 101 mmol/L (98-107); Creatinine Clr Calc Pharmacy 87.4233; Globulin 2.6 g/dL (1.3-4.6); Glucose 129 mg/dL (65-115); Osmolality Calculated 292 mOsm/kg (285-295); Potassium 4.1 mmol/L (3.5-5.1); Sodium 137 mmol/L (136-145); Total Protein 6.7 g/dL (6.6-8.7)
[2025-04-10 23:08] LABS: HCG, Serum Qual Negative (Negative)
[2025-04-10 23:13] LABS: Lipase 24 U/L (13-60)
[2025-04-10] MEDS: iohexol 350 mg/mL 500 mL Btl (per mL) IV (23:27)
[2025-04-10 23:34] LABS: INR 0.97 (0.8-1.2); Prothrombin Time 13.50 SECONDS (12.1-14.9)
[2025-04-11] MEDS: pantoprazole 40 mg SDV 80 MG IVP (00:46)
--- NOTE | 2025-04-11 01:09 | W.ED.GIBLEED ---
HPI - GI Bleed General: Chief complaint: ER Hold Stated complaint: Throwing UP Blood Time Seen by Provider: 04/10/25 23:17 History of Present Illness: Patient is a 40-year-old female presenting with one episode of hematemesis described as 'coffee-ground' in appearance and melena that started today. She denies any similar symptoms yesterday. The patient reports mild epigastric pain that has been present for years but notes it has been more painful than usual over the last couple of days. She has a history of a 'torn esophagus' with ulcers that was previously evaluated with endoscopy where a GI specialist reportedly found that it had 'healed up fine.' The patient recently started taking Protonix this month after discussing with Dr. Roberts concerns about Paxil potentially worsening existing ulcers. She reports taking Protonix approximately three times per week for the past few weeks, not daily as prescribed. Despite this treatment, she experienced this episode of hematemesis and melena. Related Data Previous Rx's ?Medication ?Instructions ?Recorded sucralfate 1 gram tablet (Carafate) 1 g PO BID 4 weeks #56 tabs 04/22/24 atenolol 25 mg tablet 25 mg PO DAILY #90 tabs 02/24/25 pantoprazole 40 mg tablet,delayed See Rx Instructions .Route 03/07/25 release .COMPLEX #30 tabs paroxetine HCl 20 mg tablet 20 mg PO DAILY #30 tabs 03/07/25 Allergies Allergy/AdvReac Type Severity Reaction Status Date / Time No Known Allergies Allergy Verified 04/10/25 21:03 [facility] ED PFSH: Medical History Peptic ulcer disease Hypertension Surgical History History of vaginal surgery Labioplasty - 2018 - Dr Hill [facility] H/O LEE Family History Father Diabetes Social History Smoking and tobacco/nicotine status: never used tobacco/nicotine Alcohol intake: never Substance/Drug Use: never Current occupational status: employed Current occupation: [employer] Physical Exam Const: COMMON NORMALS: no acute distress GENERAL APPEARANCE: cooperative; not ill appearing and not frail appearing HENMT: COMMON NORMALS: normocephalic, atraumatic and Normal external nose present HEAD & SCALP: normocephalic and atraumatic FACE & SINUS: normal facial exam and face symmetric NOSE: Normal external nose present Eye: COMMON NORMALS: Equal, round and reactive pupils present and EOMs intact bilaterally PUPIL: Yes Equal, round and reactive pupils present Neck/C-Spine: GENERAL: Yes trachea midline Chest: CHEST: Yes Symmetrical chest wall rise Resp: COMMON NORMALS: normal respiratory effort, No retractions, No use of accessory muscles and clear to auscultation bilaterally AUSCULTATION: clear to auscultation bilaterally Cardio: COMMON NORMALS: regular rate and regular rhythm RATE: regular rate RHYTHM: regular rhythm GI: COMMON NORMALS: Normal to inspection, nondistended, normoactive bowel sounds present Extremity: COMMON NORMALS: no pedal edema Neuro: JU COMA SCALE: document GCS findings Ju coma scale eye opening: Spontaneous Ju coma scale verbal response: Orientated [place] coma scale motor response: Obey commands Card[place] coma scale total score: 15 SENSORY EXAM: Yes extremities (intact) Psych: COMMON NORMALS: speech normal SPEECH: Yes normal speech Skin: COMMON NORMALS: no rashes or lesions noted GENERAL SKIN EXAM: no rashes or lesions noted Course Vital Signs: Vital signs: Vital Signs Temperature 98.1 F 04/10/25 20:59 Pulse Rate 80 04/10/25 22:00 Respiratory Rate 18 04/10/25 22:00 Blood Pressure 97/68 04/10/25 22:00 Pulse Oximetry 100 04/10/25 22:00 Oxygen Delivery Me thod Room Air 04/10/25 22:00 MDM - GI Bleed Medical Decision Making Blood pressure is mildly soft. Hemoglobin is 10.5. White blood cell count is 12.7. She has gastric \ antrum wall thickening on CT scan similar to what she had prior. Endoscopy is recommended. She has had 2 episodes total. No further episodes since I saw her initially she is symptomatic with getting up, and that she gets dizzy and pale with some lightheadedness. I spoke with surgery. If she wishes to stay, he states he will see her, otherwise he will see her as an outpatient. I spoke with hospitalist. She is willing to observe. Lab Data 04/10/25 22:11 04/10/25 22:11 Radiology Impressions Abdomen/Pelvis CT 04/10/25 22:40 IMPRESSION: 1. Gastric antrum wall thickening, please correlate for gastritis. A mass is also a consideration. Correlation with endoscopy should be considered. Similar findings were seen on prior exam. 2. Hepatic steatosis. 3. Fluid in the uterine cavity likely related to menstrual status. Laboratory Results WBC 12.70 10^3/uL (3.29-11.43) H 04/10/25 22:11 RBC 3.84 10^6/uL (3.85-5.65) L 04/10/25 22:11 Hgb 10.50 g/dL (11.27-16.99) L 04/10/25 22:11 Hct 32.4 % (36-47) L 04/10/25 22:11 MCV 84.4 fl (85-98) L 04/10/25 22:11 MCH 27.3 pg (27-33) 04/10/25 22:11 MCHC 32.4 g/dL (30-55) 04/10/25 22:11 RDW 13.1 % (12.1-15.1) 04/10/25 22:11 Plt Count 314 10^3/cmm (157-399) 04/10/25 22:11 MPV 10.1 fL (7.4-10.4) 04/10/25 22:11 Neut % (Auto) 80.0 % 04/10/25 22:11 Lymph % (Auto) 14.4 % 04/10/25 22:11 [place] % (Auto) 2.8 % 04/10/25 22:11 Eos % (Auto) 2.0 % 04/10/25 22:11 Baso % (Auto) 0.2 % 04/10/25 22:11 Neut # (Auto) 10.17 10^3/uL (1.8-7.7) H 04/10/25 22:11 Lymph # (Auto) 1.8 10^3/uL (0.8-4.8) 04/10/25 22:11 [place] # (Auto) 0.4 10^3/uL (0.2-0.9) 04/10/25 22:11 Eos # (Auto) 0.3 10^3/uL (0.0-0.8) 04/10/25 22:11 Baso # (Auto) 0.0 10^3/uL (0.0-0.1) 04/10/25 22:11 Nucleated RBC % (auto) 0 % 04/10/25 22:11 Nucleated RBCs # 0.0 /100WBC 04/10/25 22:11 PT 13.50 SECONDS (12.1-14.9) 04/10/25 22:11 INR 0.97 (0.8-1.2) 04/10/25 22:11 Sodium 137 mmol/L (136-145) 04/10/25 22:11 Potassium 4.1 mmol/L (3.5-5.1) 04/10/25 22:11 Chloride 101 mmol/L (98-107) 04/10/25 22:11 Carbon Dioxide 25 mmol/L (22-29) 04/10/25 22:11 Anion Gap 15.1 (5-19) 04/10/25 22:11 BUN 30 mg/dL (6-20) H 04/10/25 22:11 Creatinine 0.8 mg/dL (0.5-0.9) 04/10/25 22:11 GFR Calculation 79.9 mL/min (90-130) L 04/10/25 22:11 Glucose 129 mg/dL (65-115) H 04/10/25 22:11 Calculated Osmolality 292 mOsm/kg (285-295) 04/10/25 22:11 Calcium 8.5 mg/dL (8.5-10.5) 04/10/25 22:11 Total Bilirubin 0.3 mg/dL (0.15-1.2) 04/10/25 22:11 AST 18 U/L (0-32) 04/10/25 22:11 ALT 17 U/L (0-33) 04/10/25 22:11 Alkaline Phosphatase 67 U/L (35-105) 04/10/25 22:11 C-Reactive Protein 9.3 mg/L (0.0-4.9) H 04/10/25 22:11 Total Protein 6.7 g/dL (6.6-8.7) 04/10/25 22:11 Albumin 4.1 g/dL (3.5-5.2) 04/10/25 22:11 Globulin 2.6 g/dL (1.3-4.6) 04/10/25 22:11 Lipase 24 U/L (13-60) 04/10/25 22:11 HCG, Qual Negative (Negative) 04/10/25 22:11 Urine Color Yellow (Yellow) 04/11/25 00:55 Urine Appearance Clear (CLEAR) 04/11/25 00:55 Urine pH 8.5 (5-7) A 04/11/25 00:55 Ur Specific [place] 1.045 (1.005-1.030) H 04/11/25 00:55 Urine Protein Negative (Negative) 04/11/25 00:55 Urine Glucose (UA) Negative (Normal) 04/11/25 00:55 Urine Ketones Trace (Negative) 04/11/25 00:55 Urine Blood 2+ (Negative) A 04/11/25 00:55 Urine Nitrate Negative (Negative) 04/11/25 00:55 Urine Bilirubin Negative (Negative) 04/11/25 00:55 Urine Urobilinogen 0.2 mg/dL (Negative) 04/11/25 00:55 Ur Leukocyte Esterase Negative (Negative) 04/11/25 00:55 Urine RBC 0-2 /hpf (0-2) 04/11/25 00:55 Urine WBC 0-5 /hpf (0-5) 04/11/25 00:55 Ur Squamous Epith Cells 0-5 /hpf (0-5) 04/11/25 00:55 Amorphous Sediment Not Reportable 04/11/25 00:55 Urine Bacteria None seen /hpf (NONE) 04/11/25 00:55 Hyaline Casts 0-4 /lpf H 04/11/25 00:55 All radiology interpretation(s) finalized by discharge Discharge Plan Discharge Patient Disposition: Placed in Observation Admit Provider: Capri Chavarria Clinical Impression: Peptic ulcer disease, Acute upper gastrointestinal bleeding Coding Level of Care Code ED Pearl Fisherman for Roddy Cox
[2025-04-11 01:19] LABS: Glucose Urine UA Negative (Normal); Nitrate Urine Negative (Negative)
[2025-04-11 01:24] LABS: Add Urine Microscopic? YES
[2025-04-11 01:32] LABS: Specific Gravity, Urine 1.045 (1.005-1.030)
--- NOTE | 2025-04-11 04:04 | PM.HP ---
Providers/Chief Complaint Admitting Physician: Capri Chavarria MD Primary Care Provider: Cortez Roberts MD Chief Complaint: Throwing UP Blood History of Present Illness Anthony Bruner is a 40 year old female With a past medical history significant for anxiety, peptic ulcer disease, presenting to the hospital today with hematemesis. Patient states she has had coffee-ground emesis and melena that started earlier today. Also has mild epigastric discomfort which appears worse than usual. Patient's chart shows that she has a previous history of upper GI bleeding 1 year ago at which time she was diagnosed with a Nancy-Connolly tear which was likely thought to be the source of bleeding. There were additionally 2 ulcerations in the prepyloric area 1 of which was a crater with very thick margins. There was stigmata of possible previous bleeding at that time. Biopsies were taken from however the edge of the crater was not biopsied due to significant inflammation and high risk of bleeding. She was recommended to undergo a repeat endoscopy. 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 She visited with endocrinology at the time, was recommended to undergo a repeat endoscopy prior to undergoing evaluation for MEN1 syndrome. Repeat gastrin level was recently obtained by patient's primary care provider and was normal at 55. She had another endoscopy at [facility] in May 2024 results of which are reviewed on patient's [facility] portal. This showed a normal esophagus, Z-line regular, 39 cm from the incisors, normal stomach, normal examined duodenum. No specimens were collected at this time. She did not see a load builder at [facility], just had endoscopy. No H. pylori was identified on biopsies from a year ago. There was no metaplasia or dysplasia. There was noted to be mild chronic gastritis with a focal erosion. Currently she takes Protonix 3 times a week. She recently took Excedrin for URI type symptoms. Otherwise does not take NSAIDs chronically. No history of alcohol consumption. No known history of liver cirrhosis Last was in August 2023 which ended in a miscarriage. Review of Systems General: Reports: 10 or more systems reviewed and unremarkable except in HPI and below Const: Denies: fever(s), chills or body aches Eyes: Denies: change in vision, blurry vision or photophobia ENMT: Reports: hoarseness; Denies: throat pain, enlarged tonsils, odynophagia or nasal congestion Card: Denies: chest pain, palpitations, irregular heart rhythm, edema, swelling of feet/ankles, lightheadedness, pre-syncope, dyspnea on exertion or orthopnea Resp: Denies: dyspnea, productive cough, non-productive cough, wheezing, stridor, pain on inspiration, change in phlegm color, hemoptysis or chest congestion GI: Denies: abdominal pain, nausea, vomiting, hematemesis, coffee ground emesis, dysphagia, heartburn, diarrhea, constipation, GI cramping, change in stool character, hematochezia or melena : Denies: flank pain, difficulty voiding, dysuria, urinary frequency, urinary urgency, urinary hesitancy or hematuria Musc: Denies: neck pain, back pain, extremity pain, joint swelling, joint warmth or deformity Neuro: Denies: headache(s), numbness in extremities, weakness in extremities, sensory changes, difficulty walking, frequent falls, dizziness, vertigo, behavioral changes, Slurred speech present or seizure-like activity Psych: Denies: anxiety, depression, suicidal ideation or homicidal ideation Endo: Denies: polyuria, polydipsia, tired all the time, cold intolerance or hot flashes [place]/Lymph: Denies: easy bruising or easy bleeding Medications/Allergies Home Medications ?Medication ?Instructions ?Recorded ?Confirmed ?Last Taken ?Type sucralfate 1 gram tablet (Carafate) 1 g PO BID 4 weeks #56 tabs 04/22/24 03/07/25 Unknown Rx atenolol 25 mg tablet 25 mg PO DAILY #90 tabs 02/24/25 03/07/25 Unknown Rx pantoprazole 40 mg tablet,delayed See Rx Instructions .Route 03/07/25 03/07/25 Unknown Rx release .COMPLEX #30 tabs paroxetine HCl 20 mg tablet 20 mg PO DAILY #30 tabs 03/07/25 03/07/25 Unknown Rx Allergies Allergy/AdvReac Type Severity Reaction Status Date / Time No Known Allergies Allergy Verified 04/10/25 21:03 PFSH Acute PFSH: Medical History Peptic ulcer disease Hypertension Surgical History History of vaginal surgery Labioplasty - 2018 - Dr Hill [facility] H/O LEEP Family History Father Diabetes Social History Smoking and tobacco/nicotine status: never used tobacco/nicotine Alcohol intake: never Substance/Drug Use: never Current occupational status: employed Current occupation: [employer] Female Reproductive History: Date of last menstrual period: 04/11/25 Vitals/I&O/Wt Last Vital Signs Temp 98.1 F 04/10/25 20:59 Pulse 80 04/10/25 22:00 Resp 18 04/10/25 22:00 BP 97/68 04/10/25 22:00 Pulse Ox 100 04/10/25 22:00 O2 Del Method Room Air 04/11/25 01:58 Weight last 48 hrs Weight 68.039 kg Physical Exam Narrative: General: No acute distress, AO x3 HEENT: PERRLA, pupils bilaterally equal and reactive, pallors not present Chest: Normal vesicular breath sounds, no added sounds, equal good air entry bilaterally CVS: S1-S2 regular, no murmurs, no tachycardia, no gallops, no rubs Abdomen: Soft, nontender, no organomegaly, bowel sounds present Neuro: No focal deficits, no facial deformity, AO x3, power 5/5 in all limbs Data 04/10/25 22:11 04/10/25 22:11 Other data: Radiology Impressions Abdomen/Pelvis CT 04/10/25 22:40 IMPRESSION: 1. Gastric antrum wall thickening, please correlate for gastritis. A mass is also a consideration. Correlation with endoscopy should be considered. Similar findings were seen on prior exam. 2. Hepatic steatosis. 3. Fluid in the uterine cavity likely related to menstrual status. Laboratory Results WBC 12.70 10^3/uL (3.29-11.43) H 04/10/25 22:11 RBC 3.84 10^6/uL (3.85-5.65) L 04/10/25 22:11 Hgb 10.50 g/dL (11.27-16.99) L 04/10/25 22:11 Hct 32.4 % (36-47) L 04/10/25 22:11 MCV 84.4 fl (85-98) L 04/10/25 22:11 MCH 27.3 pg (27-33) 04/10/25 22:11 MCHC 32.4 g/dL (30-55) 04/10/25 22:11 RDW 13.1 % (12.1-15.1) 04/10/25 22:11 Plt Count 314 10^3/cmm (157-399) 04/10/25 22:11 MPV 10.1 fL (7.4-10.4) 04/10/25 22:11 Neut % (Auto) 80.0 % 04/10/25 22:11 Lymph % (Auto) 14.4 % 04/10/25 22:11 [place] % (Auto) 2.8 % 04/10/25 22:11 Eos % (Auto) 2.0 % 04/10/25 22:11 Baso % (Auto) 0.2 % 04/10/25 22:11 Neut # (Auto) 10.17 10^3/uL (1.8-7.7) H 04/10/25 22:11 Lymph # (Auto) 1.8 10^3/uL (0.8-4.8) 04/10/25 22:11 [place] # (Auto) 0.4 10^3/uL (0.2-0.9) 04/10/25 22:11 Eos # (Auto) 0.3 10^3/uL (0.0-0.8) 04/10/25 22:11 Baso # (Auto) 0.0 10^3/uL (0.0-0.1) 04/10/25 22:11 Nucleated RBC % (auto) 0 % 04/10/25 22:11 Nucleated RBCs # 0.0 /100WBC 04/10/25 22:11 PT 13.50 SECONDS (12.1-14.9) 04/10/25 22:11 INR 0.97 (0.8-1.2) 04/10/25 22:11 Sodium 137 mmol/L (136-145) 04/10/25 22:11 Potassium 4.1 mmol/L (3.5-5.1) 04/10/25 22:11 Chloride 101 mmol/L (98-107) 04/10/25 22:11 Carbon Dioxide 25 mmol/L (22-29) 04/10/25 22:11 Anion Gap 15.1 (5-19) 04/10/25 22:11 BUN 30 mg/dL (6-20) H 04/10/25 22:11 Creatinine 0.8 mg/dL (0.5-0.9) 04/10/25 22:11 GFR Calculation 79.9 mL/min (90-130) L 04/10/25 22:11 Glucose 129 mg/dL (65-115) H 04/10/25 22:11 Calculated Osmolality 292 mOsm/kg (285-295) 04/10/25 22:11 Calcium 8.5 mg/dL (8.5-10.5) 04/10/25 22:11 Total Bilirubin 0.3 mg/dL (0.15-1.2) 04/10/25 22:11 AST 18 U/L (0-32) 04/10/25 22:11 ALT 17 U/L (0-33) 04/10/25 22:11 Alkaline Phosphatase 67 U/L (35-105) 04/10/25 22:11 C-Reactive Protein 9.3 mg/L (0.0-4.9) H 04/10/25 22:11 Total Protein 6.7 g/dL (6.6-8.7) 04/10/25 22:11 Albumin 4.1 g/dL (3.5-5.2) 04/10/25 22:11 Globulin 2.6 g/dL (1.3-4.6) 04/10/25 22:11 Lipase 24 U/L (13-60) 04/10/25 22:11 HCG, Qual Negative (Negative) 04/10/25 22:11 Urine Color Yellow (Yellow) 04/11/25 00:55 Urine Appearance Clear (CLEAR) 04/11/25 00:55 Urine pH 8.5 (5-7) A 04/11/25 00:55 Ur Specific [place] 1.045 (1.005-1.030) H 04/11/25 00:55 Urine Protein Negative (Negative) 04/11/25 00:55 Urine Glucose (UA) Negative (Normal) 04/11/25 00:55 Urine Ketones Trace (Negative) 04/11/25 00:55 Urine Blood 2+ (Negative) A 04/11/25 00:55 Urine Nitrate Negative (Negative) 04/11/25 00:55 Urine Bilirubin Negative (Negative) 04/11/25 00:55 Urine Urobilinogen 0.2 mg/dL (Negative) 04/11/25 00:55 Ur Leukocyte Esterase Negative (Negative) 04/11/25 00:55 Urine RBC 0-2 /hpf (0-2) 04/11/25 00:55 Urine WBC 0-5 /hpf (0-5) 04/11/25 00:55 Ur Squamous Epith Cells 0-5 /hpf (0-5) 04/11/25 00:55 Amorphous Sediment Not Reportable 04/11/25 00:55 Urine Bacteria None seen /hpf (NONE) 04/11/25 00:55 Hyaline Casts 0-4 /lpf H 04/11/25 00:55 A&P Assessment and plan 1. Acute upper gastrointestinal bleedin. Anemia: Plan: (1) Acute upper gastrointestinal bleedin-year-old lady with a past medical history as above presenting with upper GI bleeding with a past history of the same. CT of the abdomen and pelvis is showing gastric antrum wall thickening. Mass is not excluded. She had similar findings on her CAT scan taken 1 year ago. EGD a year ago had shown Nancy-Connolly tear as well as gastric ulcerations, H. pylori negative on biopsy. Similar history of GI bleeding 5 years ago. Repeat endoscopy at [facility] in May 2024 had shown normal esophagus stomach and duodenum. Elevated gastrin levels were noted a year ago, however more recently gastrin level was normal at 55 tested recently by PCP. She has received 80 mg IV Protonix in the emergency room, start Protonix 40 IV twice daily Carafate 1 g twice daily Trend hemoglobin every 6 hours General Surgery consulted, anticipate will require endoscopic evaluation N.p.o. as anticipate endoscopy. (2) Acute blood loss anemia: Hemoglobin currently 10.5, down from 13.41- one month ago Trend H&H Q6H Hemoglobin goal of at least 7, transfuse if less than this number (3) Leukocytosis: Suspect stress-induced and related to dehydration from volume loss. CT of the abdomen and pelvis without any acute infective pathology identified. Will obtain chest x-ray. Urine analysis without signs of UTI PDMP PDMP Reviewed: Not Reviewed Attestations Medical Necessity Statement*: Greater than 2 midnight stay is anticipated Coding Level of Care Code Acute Code for Chg Fwd High MDM includes number and complexity of problems actively addressed during encounter, amount and/or complexity of data reviewed/ordered and described risk of complication, morbidity or mortality of management as documented Diagnoses Acute upper gastrointestinal bleeding K92.2 Anemia D64.9
--- NOTE | 2025-04-11 04:19 | XRR_ITS ---
PROCEDURE INFORMATION: Exam: XR Chest Exam date and time: 04/11/2025 4:27 AM Age: 40 years old Clinical indication: Abnormal findings; Abnormal diagnostic tests; Abnormal ekg; Leukocytosis. TECHNIQUE: Imaging protocol: Radiologic exam of the chest. Views: 1 view. COMPARISON: CT abdomen pelvis w con* [id number] 04/10/2025 11:26 PM FINDINGS: Lungs: Unremarkable. No consolidation. Pleural spaces: Unremarkable. No pleural effusion. No pneumothorax. Heart/Mediastinum: Unremarkable. No cardiomegaly. Bones/joints: Unremarkable. XR/XR chest 1V portable [id number] IMPRESSION: No acute findings.
[2025-04-11 05:04] VITALS: BP 120/60; PULSE 77; RESP 16; O2SAT 99
[2025-04-11] MEDS: pantoprazole 40 mg SDV IVP (05:04)
[2025-04-11 05:39] LABS: Hematocrit 30.5 % (36-47); Hemoglobin 10.10 g/dL (11.27-16.99)
[2025-04-11 06:56] VITALS: BP 113/75; PULSE 81; RESP 16; O2SAT 97
[2025-04-11 07:52] VITALS: BP 127/76; PULSE 84; RESP 16; TEMP 36.9; O2SAT 97
[2025-04-11 09:02] VITALS: BMI 26.5
--- NOTE | 2025-04-11 10:16 | PM.CONSULT ---
Providers/Reason For Consult Consulting Physician/Specialty*: Dr. Zavala general surgery Reason for Consult*: Peptic ulcer disease Attending Physician: Cristian Hagen MD Primary Care Provider: Cortez Roberts MD History of Present Illness History of Present Illness Anthony Bruner is a 40 year old female whom surgery was consulted for hematemesis. Patient reports 1 isolated episode of blood in emesis yesterday. Patient denies any epigastric pain, she has not had any recent episodes of nausea and vomiting. No excessive drinking. No melena. Patient reports that today she is feeling well. No complaints. Medications/Allergies Home Medications ?Medication ?Instructions ?Recorded ?Confirmed ?Last Taken ?Type sucralfate 1 gram tablet (Carafate) 1 g PO BID 4 weeks #56 tabs 04/22/24 03/07/25 Unknown Rx atenolol 25 mg tablet 25 mg PO DAILY #90 tabs 02/24/25 03/07/25 Unknown Rx pantoprazole 40 mg tablet,delayed See Rx Instructions .Route 03/07/25 03/07/25 Unknown Rx release .COMPLEX #30 tabs paroxetine HCl 20 mg tablet 20 mg PO DAILY #30 tabs 03/07/25 03/07/25 Unknown Rx Allergies Allergy/AdvReac Type Severity Reaction Status Date / Time No Known Allergies Allergy Verified 04/10/25 21:03 Current Medications Generic Name Dose Route Start Last Admin Trade Name Freq PRN Reason Stop Dose Admin Sodium Chloride 1,000 mls @ 100 mls/hr 04/11/25 04:00 04/11/25 05:04 Sodium Chloride 0.9% IV 100 mls/hr .Q10H [place] Administration Pantoprazole Sodium 40 mg 04/11/25 04:00 04/11/25 05:04 Pantoprazole 40 Mg Sdv IVP 40 mg Q12H [place] Administration Sucralfate 1 gm 04/11/25 07:00 04/11/25 06:09 Sucralfate 1 Gm Tablet PO 1 gm AC&BEDTIME [place] Administration PFSH Acute PFSH: Medical History Peptic ulcer disease Hypertension Surgical History History of vaginal surgery Labioplasty - 2018 - Dr Hill - [place] H/O LEEP Family History Father Diabetes Social History Smoking and tobacco/nicotine status: never used tobacco/nicotine Alcohol intake: never Substance/Drug Use: never Current occupational status: employed Current occupation: [employer] Female Reproductive History: Date of last menstrual period: 04/11/25 Vitals/I&O/Wt Last Vital Signs Temp 98.4 F 04/11/25 07:52 Pulse 84 04/11/25 07:52 Resp 16 04/11/25 07:52 BP 127/76 04/11/25 07:52 Pulse Ox 97 04/11/25 07:52 O2 Del Method Room Air 04/11/25 07:52 Weight last 48 hrs Weight 150 lb Weight 150 lb Physical Exam Narrative: Chest: Unlabored breathing room air. No lymphadenopathy. Heart: Regular rate and rhythm. Abdomen: Soft, nontender, nondistended. No masses or lymphadenopathy. Data 04/11/25 05:20 04/10/25 22:11 A&P Assessment and plan 1. Acute upper gastrointestinal bleeding: Plan: 40-year-old female whom surgery was consulted for 1 episode of hematemesis. Reviewed CT scan which is consistent with peptic ulcer disease. Discussed with hospitalist. My recommendations are as follows: Protonix 40 mg twice daily indefinitely, sucralfate every 6 hours, follow-up in clinic for outpatient EGD. Patient is feeling well and is not having belly pain or any additional episodes of vomiting. From a surgical perspective can advance diet. PDMP PDMP Reviewed: Not Reviewed Coding Level of Care Code 43208 Diagnoses Acute upper gastrointestinal bleeding K92.2
[2025-04-11 10:17] LABS: Hematocrit 29.6 % (36-47); Hemoglobin 9.80 g/dL (11.27-16.99)
[2025-04-11 11:22] VITALS: BP 123/79; PULSE 85; RESP 15; TEMP 37; O2SAT 98
--- NOTE | 2025-04-11 12:45 | PM.DCS ---
Discharge Providers Date of Admission: 04/11/25 04:02 Date of Discharge: April 11, 2025 Attending Provider at Admission: Capri Chavarria MD Attending Provider at Discharge: Cristian Hagen MD Consults: Dr. Lucas ZHU General Surgery Primary Care Provider: Cortez Roberts MD Diagnoses at Discharge Discharge Diagnosis 1. Acute upper gastrointestinal bleeding: Details from hospital stay: Vomiting resolved after admission and melena has decreased and become more firm. No abdominal pain. Hematocrit stable and patient is ready for discharge. patient has duodenal thickening and was seen by Dr. Zavala with plans for EGD outpatient and has a follow-up appointment 2. Acute blood loss anemia: Details from hospital stay: Patient had anemia March 2024 that resolved to hematocrit 41.6 with acute blood loss this visit down to 32.4 then 30 and stabilized at 29.6. Will add some iron replacement. Reason for Visit Reason for Visit: Throwing UP Blood Brief History: jeremy Bruner is a 40 year old female With a past medical history significant for anxiety, peptic ulcer disease, presenting to the hospital today with hematemesis. Patient states she has had coffee-ground emesis and melena that started earlier today. Also has mild epigastric discomfort which appears worse than usual. Patient's chart shows that she has a previous history of upper GI bleeding 1 year ago at which time she was diagnosed with a Nancy-Connolly tear which was likely thought to be the source of bleeding. There were additionally 2 ulcerations in the prepyloric area 1 of which was a crater with very thick margins. There was stigmata of possible previous bleeding at that time. Biopsies were taken from however the edge of the crater was not biopsied due to significant inflammation and high risk of bleeding. She was recommended to undergo a repeat endoscopy. 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 She visited with endocrinology at the time, was recommended to undergo a repeat endoscopy prior to undergoing evaluation for MEN1 syndrome. Repeat gastrin level was recently obtained by patient's primary care provider and was normal at 55. She had another endoscopy at [facility] in May 2024 results of which are reviewed on patient's [facility] portal. This showed a normal esophagus, Z-line regular, 39 cm from the incisors, normal stomach, normal examined duodenum. No specimens were collected at this time. She did not see a cooker tender at [facility], just had endoscopy. No H. pylori was identified on biopsies from a year ago. There was no metaplasia or dysplasia. There was noted to be mild chronic gastritis with a focal erosion. Currently she takes Protonix 3 times a week. She recently took Excedrin for URI type symptoms. Otherwise does not take NSAIDs chronically. No history of alcohol consumption. No known history of liver cirrhosis Last was in August 2023 which ended in a miscarriage. Hospital Course Hospital Course Patient was admitted from the emergency department and that was early this morning. Bleeding has stopped hematocrit is stable and she desires to go home. Patient was seen by Dr. Zavala and his recommendation is outpatient EGD. Patient has a follow-up on the . Patient had a BM just now which she states is formed but still black improved from watery black stools yesterday Physical Exam Narrative: General well-developed well-nourished female in no acute cardiopulmonary stress CV regular rate and rhythm Lungs clear to auscultation bilaterally Abdomen positive bowel tones soft nontender Discharge Data Studies Completed and Pending Completed Studies During Hospitalization Category Date Time Status CT abdomen pelvis w con* [id number] Stat Cat Scan 04/10/25 22:40 Completed CXRP [XR chest 1V portable [id number]] Routine Exams 04/11/25 04:19 Completed Pending at discharge Category Date Time Status CMP [Comprehensive Metabolic Panel] AM LABS Lab 04/12/25 04:00 Ordered Complete Blood Count w/Auto AM LABS Lab 04/12/25 04:00 Ordered Hemoglobin and Hematocrit Q6H Lab 04/11/25 15:59 Ordered Hemoglobin and Hematocrit Q6H Lab 04/11/25 21:59 Ordered Hemoglobin and Hematocrit Q6H Lab 04/12/25 03:59 Ordered Radiology Impressions Abdomen/Pelvis CT 04/10/25 22:40 IMPRESSION: 1. Gastric antrum wall thickening, please correlate for gastritis. A mass is also a consideration. Correlation with endoscopy should be considered. Similar findings were seen on prior exam. 2. Hepatic steatosis. 3. Fluid in the uterine cavity likely related to menstrual status. Chest X-Ray 04/11/25 04:19 IMPRESSION: No acute findings. Laboratory Results WBC 12.70 10^3/uL (3.29-11.43) H 04/10/25 22:11 RBC 3.84 10^6/uL (3.85-5.65) L 04/10/25 22:11 Hgb 9.80 g/dL (11.27-16.99) L 04/11/25 10:00 Hct 29.6 % (36-47) L 04/11/25 10:00 MCV 84.4 fl (85-98) L 04/10/25 22:11 MCH 27.3 pg (27-33) 04/10/25 22:11 MCHC 32.4 g/dL (30-55) 04/10/25 22:11 RDW 13.1 % (12.1-15.1) 04/10/25 22:11 Plt Count 314 10^3/cmm (157-399) 04/10/25 22:11 MPV 10.1 fL (7.4-10.4) 04/10/25 22:11 Neut % (Auto) 80.0 % 04/10/25 22:11 Lymph % (Auto) 14.4 % 04/10/25 22:11 Kaufman % (Auto) 2.8 % 04/10/25 22:11 Eos % (Auto) 2.0 % 04/10/25 22:11 Baso % (Auto) 0.2 % 04/10/25 22:11 Neut # (Auto) 10.17 10^3/uL (1.8-7.7) H 04/10/25 22:11 Lymph # (Auto) 1.8 10^3/uL (0.8-4.8) 04/10/25 22:11 Kaufman # (Auto) 0.4 10^3/uL (0.2-0.9) 04/10/25 22:11 Eos # (Auto) 0.3 10^3/uL (0.0-0.8) 04/10/25 22:11 Baso # (Auto) 0.0 10^3/uL (0.0-0.1) 04/10/25 22:11 Nucleated RBC % (auto) 0 % 04/10/25 22:11 Nucleated RBCs # 0.0 /100WBC 04/10/25 22:11 PT 13.50 SECONDS (12.1-14.9) 04/10/25 22:11 INR 0.97 (0.8-1.2) 04/10/25 22:11 Sodium 137 mmol/L (136-145) 04/10/25 22:11 Potassium 4.1 mmol/L (3.5-5.1) 04/10/25 22:11 Chloride 101 mmol/L (98-107) 04/10/25 22:11 Carbon Dioxide 25 mmol/L (22-29) 04/10/25 22:11 Anion Gap 15.1 (5-19) 04/10/25 22:11 BUN 30 mg/dL (6-20) H 04/10/25 22:11 Creatinine 0.8 mg/dL (0.5-0.9) 04/10/25 22:11 GFR Calculation 79.9 mL/min (90-130) L 04/10/25 22:11 Glucose 129 mg/dL (65-115) H 04/10/25 22:11 Calculated Osmolality 292 mOsm/kg (285-295) 04/10/25 22:11 Calcium 8.5 mg/dL (8.5-10.5) 04/10/25 22:11 Total Bilirubin 0.3 mg/dL (0.15-1.2) 04/10/25 22:11 AST 18 U/L (0-32) 04/10/25 22:11 ALT 17 U/L (0-33) 04/10/25 22:11 Alkaline Phosphatase 67 U/L (35-105) 04/10/25 22:11 C-Reactive Protein 9.3 mg/L (0.0-4.9) H 04/10/25 22:11 Total Protein 6.7 g/dL (6.6-8.7) 04/10/25 22:11 Albumin 4.1 g/dL (3.5-5.2) 04/10/25 22:11 Globulin 2.6 g/dL (1.3-4.6) 04/10/25 22:11 Lipase 24 U/L (13-60) 04/10/25 22:11 HCG, Qual Negative (Negative) 04/10/25 22:11 Urine Color Yellow (Yellow) 04/11/25 00:55 Urine Appearance Clear (CLEAR) 04/11/25 00:55 Urine pH 8.5 (5-7) A 04/11/25 00:55 Ur Specific [place] 1.045 (1.005-1.030) H 04/11/25 00:55 Urine Protein Negative (Negative) 04/11/25 00:55 Urine Glucose (UA) Negative (Normal) 04/11/25 00:55 Urine Ketones Trace (Negative) 04/11/25 00:55 Urine Blood 2+ (Negative) A 04/11/25 00:55 Urine Nitrate Negative (Negative) 04/11/25 00:55 Urine Bilirubin Negative (Negative) 04/11/25 00:55 Urine Urobilinogen 0.2 mg/dL (Negative) 04/11/25 00:55 Ur Leukocyte Esterase Negative (Negative) 04/11/25 00:55 Urine RBC 0-2 /hpf (0-2) 04/11/25 00:55 Urine WBC 0-5 /hpf (0-5) 04/11/25 00:55 Ur Squamous Epith Cells 0-5 /hpf (0-5) 04/11/25 00:55 Amorphous Sediment Not Reportable 04/11/25 00:55 Urine Bacteria None seen /hpf (NONE) 04/11/25 00:55 Hyaline Casts 0-4 /lpf H 04/11/25 00:55 Vitals Last Vital Signs Temp 98.6 F 04/11/25 11:22 Pulse 85 04/11/25 11:22 Resp 15 04/11/25 11:22 BP 123/79 04/11/25 11:22 Pulse Ox 98 04/11/25 11:22 O2 Del Method Room Air 04/11/25 11:22 Discharge Plan Discharge Patient Disposition: Home Condition: Stable Prescriptions: New sucralfate 1 gram Tablet 1 g PO AC&BEDTIME Qty: 30 0RF pantoprazole 40 mg tablet,delayed release (DR/EC) 40 mg PO BID 30 Days Qty: 60 0RF ferrous sulfate 325 mg (65 mg iron) tablet,delayed release (DR/EC) 325 mg PO BID Qty: 60 0RF Continued paroxetine HCl 20 mg tablet 20 mg PO DAILY Qty: 30 6RF atenolol 25 mg tablet 25 mg PO DAILY Qty: 90 3RF Discontinued pantoprazole 40 mg tablet,delayed release (DR/EC) See Rx Instructions .ROUTE .COMPLEX Qty: 30 6RF Dose Instruction: TAKE 1 TABLET BY MOUTH TWICE A DAY FOR 30 DAYS Rx Instructions: TAKE 1 TABLET BY MOUTH ONCE A DAY Discharge Order = DC NOW: Discharge Order (Routine); Ordered 04/11/25 Ordered By: Cristian Hagen Referrals: Manuel Zavala MD [Physician, General Surgery] - 04/26/25 Referral Note: you will be recieving a packet in the mail with more information about this procedure and time it will be, if you have any questions just call them. Cortez Roberts MD [Primary Care Provider, [facility]] - 04/18/25 8:00 am Discharge Diet: Advance as tolerated and GI Soft Discharge Activity: Increase activity as tolerated Patient Instructions: Sucralfate (By mouth) (Carafate), Pantoprazole (By mouth) (Protonix), Gastrointestinal Bleeding (DC), Patient Portal & [place] Instructions Activity Restrictions/Additional Instructions: Return if vomiting blood or having increased black tarry stools. Your black tarry stools should resolve over the next 2 days Discharge Attestations Time Spent in Discharge Care*: greater than 30 min Quality Metrics Clinical Quality Measures [ No reported AMI, CVA or VTE this stay] Coding Level of Care Code 22714 Diagnoses Acute upper gastrointestinal bleeding K92.2 Acute blood loss anemia D62 Time Spent (min) 35
[2025-04-11 13:13] VITALS: BP 123/79; PULSE 85; RESP 16; TEMP 37; O2SAT 98
--- OUTSIDE RECORDS SUMMARY | 2025-04-12 13:13 | XMS_ITS | Clinical Summary ---
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 Address: [facility] [id number] [place] [id number]
--- OUTSIDE RECORDS SUMMARY | 2025-04-12 13:13 | XMS_ITS | Clinical Summary ---
Author Organization [facility] Address [address] 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
== END 2025-04-11 13:14 | disposition home or self-care (01) ==
LOC: ER 04-11 01:37 → MEDSURG 04-11 07:57 → ER IP 04-12 13:10
PROVIDERS: Admitting Provider Student in an Organized Health Care Education/Training Program; Emergency Provider Emergency Medicine; PCP Family Medicine; Visit Provider Internal Medicine
DX: K92.2 Gastrointestinal hemorrhage, unspecified (principal); D62 Acute posthemorrhagic anemia; K21.9 Gastro-esophageal reflux disease without esophagitis; I10 Essential (primary) hypertension; F41.9 Anxiety disorder, unspecified; D72.829 Elevated white blood cell count, unspecified; Z87.19 Personal history of other diseases of the digestive system
CPT/HCPCS: 36415; 71045; 74177; 80053; 81001; 83690; 84703; 85014; 85018; 85025; 85610; 86140; 96374; 96376; 99285; G0378; J2470; J7030; J9999

== ENCOUNTER 2025-04-26 09:42 | Day surgery (SDC) | payer BC, SELFPAY ==
[2025-04-26 10:07] VITALS: BP 113/66; PULSE 64; RESP 18; TEMP 36.6; O2SAT 99
[2025-04-26 10:11] VITALS: BMI 26.2
[2025-04-26 10:14] LABS: OR HCG Qualitative Urine Negative (Negative)
--- NOTE | 2025-04-26 10:25 | W.PM.OPSUD ---
Surgery/Procedure H&P Update DATE OF PROCEDURE: April 26, 2025 DATE H&P PERFORMED: 04/11/25 H&P UPDATE INFORMATION: I have reviewed H&P completed within last 30 days, I have examined patient prior to procedure and No changes to prior documentation PLANNED PROCEDURE: Operation Date: 04/26/25 11:00 Proposed Procedures p EGD EGD with Biopsy 28096 K27.9(Not Applicable) - Manuel Zavala MD
--- NOTE | 2025-04-26 10:41 | ANES.PREANE2 ---
Pre-Anesthetic Assessment Height/Weight: Height 1.6 m Weight 67.132 kg Temp Pulse Resp BP Pulse Ox O2 Del Method 97.8 F 64 18 113/66 99 Room Air 04/26/25 10:07 04/26/25 10:07 04/26/25 10:07 04/26/25 10:07 04/26/25 10:07 04/26/25 10:07 Preop Diagnosis: ulcer Operation Date: 04/26/25 11:00 Proposed Procedures p EGD EGD with Biopsy 78913 K27.9(Not Applicable) - Manuel Zavala MD Was Beta Lisa taken within 24 hours: N/A Was Clonidine taken within 24 hours: N/A Last intake: Intake Last Liquid Date 04/25/25 Last Solid Date 04/25/25 Last Intake: 23:00 Social No alcohol and No tobacco Exam oriented x 3 Airway Submandibular: within normal limits Cervical ROM: within normal limits Mallampati: Class I Dentition: full History/ROS No significant history except as noted Pulmonary None reported CV/HEM None reported None reported Hepatic None reported GI None reported Metabolic None reported Musc/skel None reported Neuropsych None reported Anesthetic Plan ASA status: 2 Anesthesia: Anesthesia Evaluation Risk of > 500 ml blood loss (7ml/kg in children): No Medications/Allergies Home Medications ?Medication ?Instructions ?Recorded ?Confirmed ?Last Taken ?Type atenolol 25 mg tablet 25 mg PO DAILY #90 tabs 02/24/25 04/20/25 04/26/25 Rx ferrous sulfate 325 mg (65 mg 325 mg PO BID #60 tabs 04/11/25 04/20/25 04/25/25 Rx iron) tablet,delayed release pantoprazole 40 mg tablet,delayed 40 mg PO BID 30 days #60 tabs 04/11/25 04/20/25 04/26/25 Rx release sucralfate 1 gram tablet 1 g PO BID 04/20/25 04/20/25 04/25/25 History Allergies Allergy/AdvReac Type Severity Reaction Status Date / Time No Known Allergies Allergy Verified 04/26/25 10:05 Current Medications Generic Name Dose Route Start Last Admin Trade Name Freq PRN Reason Stop Dose Admin Sodium Chloride 1,000 mls @ 15 mls/hr 04/26/25 09:47 04/26/25 10:18 Sodium Chloride 0.9% IV 04/27/25 09:46 15 mls/hr .Q24H PRN Administration COLONOSCOPY FLUIDS PFSH Anesthesia Medical History Peptic ulcer disease Hypertension Surgical History History of vaginal surgery Labioplasty - 2018 - Dr Hill [facility] [place] Family History Father Diabetes Social History Smoking and tobacco/nicotine status: never used tobacco/nicotine Alcohol intake: never Substance/Drug Use: never Current occupational status: employed Current occupation: [employer] Female Reproductive History Date of last menstrual period: 04/09/25
--- NOTE | 2025-04-26 10:54 | P.HP_ITS ---
Same Day Surgery H&P Indication for Procedure/HPI DATE OF PROCEDURE: April 26, 2025 CHIEF COMPLAINT/INDICATIONFOR SURGICAL PROCEDURE: hematemesis PREOP DIAGNOSIS: hematemesis PLANNED PROCEDURE: Operation Date: 04/26/25 11:00 Proposed Procedures p EGD EGD with Biopsy [id number] K27.9(Not Applicable) - Manuel Zavala MD Medications/Allergies* Home Medications ?Medication ?Instructions ?Recorded ?Confirmed ?Type sucralfate 1 gram tablet 1 g PO BID 04/20/25 04/20/25 History Allergies/Adverse Reactions Allergy/AdvReac Type Severity Reaction Status Date / Time No Known Allergies Allergy Verified 04/26/25 10:05 Current Medications: Generic Name Dose Route Start Last Admin Trade Name Freq PRN Reason Stop Dose Admin Sodium Chloride 1,000 mls @ 15 mls/hr 04/26/25 09:47 04/26/25 10:18 Sodium Chloride 0.9% IV 04/27/25 09:46 15 mls/hr .Q24H PRN Administration COLONOSCOPY FLUIDS Pertinent History/Comorbid Conditions* Medical History (Updated 04/12/25 @ 00:00 by PASCUAL Bynum) Peptic ulcer disease Hypertension Surgical History (Updated 09/10/23 @ 11:37 by Cortez Roberts MD) History of vaginal surgery Labioplasty - 2018 - Dr Hill - [place] H/O LEEP Family History (Updated 09/10/23 @ 11:36 by Cortez Roberts MD) Diabetes Father Social History Smoking and tobacco/nicotine status: never used tobacco/nicotine Alcohol intake: never Substance/Drug Use: never Current occupational status: employed Current occupation: [employer] Pertinent Exam Findings alert, oriented x 3, clear to auscultation bilaterally, regular rate & rhythm and procedure specific exam findings abdomen soft, nt, nd Recommendations Risks and benefits of procedure reviewed and Patient/family agree to proceed Surgery/Procedure today Other Plans: Proceed with EGD Coding Level of Care Code Acute Code for Chg Fwd
[2025-04-26 11:13] VITALS: BP 99/55; PULSE 67; TEMP 36.1; O2SAT 97
[2025-04-26 11:23] VITALS: BP 97/72; PULSE 69; RESP 18; O2SAT 98
[2025-04-26 11:32] VITALS: BP 99/62; PULSE 70; RESP 16; O2SAT 98
--- NOTE | 2025-04-26 11:50 | ANE.PACU2 ---
Inpatient post-anesthesia follow up: Airway intact: Yes Vital signs: Temperature 97.0 F Pulse Rate 70 Respiratory Rate 16 Blood Pressure 99/62 Pulse Oximetry 98 Oxygen Delivery Me thod Room Air Oxygen Flow Rate Fraction of Inspir ed Oxygen Hydration adequate: Yes Nausea and vomiting: No Pain level: 1 Mental status: Baseline
== END 2025-04-26 11:53 | disposition home or self-care (01) ==
PROVIDERS: Student in an Organized Health Care Education/Training Program; PCP Family Medicine; Visit Provider Student in an Organized Health Care Education/Training Program
PROC: 0DJ08ZZ Inspection of Upper Intestinal Tract, Via Natural or Artificial Opening Endoscopic (ICD-10-PCS; principal; 2025-04-26 11:00)
DX: K92.0 Hematemesis (principal); K29.70 Gastritis, unspecified, without bleeding; I10 Essential (primary) hypertension; K27.9 Peptic ulcer, site unspecified, unspecified as acute or chronic, without hemorrhage or perforation
CPT/HCPCS: 43239; 81025; 88305; J2704; J7030

== ENCOUNTER → 2025-06-16 12:21 | Outpatient (BNVA) | payer BC, SELFPAY | PROVIDERS: PCP Family Medicine; Visit Provider Family Medicine | DX: Z00.00 Encounter for general adult medical examination without abnormal findings (principal); R21 Rash and other nonspecific skin eruption; D64.9 Anemia, unspecified; Z51.81 Encounter for therapeutic drug level monitoring | CPT/HCPCS: 80053; 82607; 83550; 85025; 86003; 86008 ==